=== PATIENT | female | born 1965 | race Caucasian/White ===

== ENCOUNTER 2018-05-02 13:31 | Emergency (ER) | payer SELFPAY ==
--- OUTSIDE RECORDS SUMMARY | 2018-05-02 13:34 | XMS REPORT ---
:1965 Author Organization eClinicalWorks Care Team Providers Name Role Phone Valerie Mcgill Provider Role Unavailable Allergies No Known Allergies Problems Problem Type Condition Code Onset Dates Condition Status Assessment Acute vaginitis N76.0 Active Problem Heavy menstrual period N92.0 Active Assessment Other specified bacterial agents as B96.89 Active the cause of diseases classified elsewhere Problem Other specified bacterial agents as B96.89 Active the cause of diseases classified elsewhere Problem Acute vaginitis N76.0 Active Problem Positive RPR test A53.0 Active Problem Iron deficiency anemia due to D50.0 Active chronic blood loss Problem 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
--- OUTSIDE RECORDS SUMMARY | 2018-05-02 13:34 | XMS REPORT ---
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
--- OUTSIDE RECORDS SUMMARY | 2018-05-02 13:34 | XMS REPORT ---
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
--- OUTSIDE RECORDS SUMMARY | 2018-05-02 13:34 | XMS REPORT ---
:1965 Author Organization eClinicalWorks Care Team Providers Name Role Phone Robert Torres Provider Role Unavailable Allergies No Known Allergies Problems Problem Type Condition Code Onset Dates Condition Status Problem Heavy menstrual period N92.0 Active Problem Other specified bacterial agents as [...]
--- OUTSIDE RECORDS SUMMARY | 2018-05-02 13:34 | XMS REPORT ---
:1965 Author Organization eClinicalWorks Care Team Providers Name Role Phone Valerie Mcgill Provider Role Unavailable Allergies, Adverse Reactions, Alerts Substance Reaction Event Type N.K.D.A. 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 Problem Female bladder prolapse N81.10 Active Problem test negative Z32.02 Active Medications Medication Code Code Instructions Start End Status Dosage System Date Date Metronidazole [place] 89080555968 500 MG Orally Active 1 tablet Twice a day Ferrous Sulfate ND 90203641369 325 (65 Fe) November Active 1 tablet MG Orally 20, Once a day 2015 [place] [address]-13 10 MG Active 1 at Sublingual bedtime as one time a needed day prn MedroxyPROGESTERone ND 62964619145 10 MG Orally Aug Active 1 tablet Acetate am and pm 2015 Levothroid NDC 0 50MCG by Active not defined mouth one time a day MetroGel-Vaginal ND 43384406459 0.75 % Active 1 Vaginal Once application a day at bedtime Results No Known Results Summary Purpose eClinicalWorks Submission
--- OUTSIDE RECORDS SUMMARY | 2018-05-02 13:34 | XMS REPORT ---
:1965 [facility] Providers Name Role Phone Valerie Mcgill Provider Role Unavailable Allergies, Adverse Reactions, Alerts Substance Reaction Event Type N.K.D.A. 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 Problem test negative Z32.02 Active Problem Iron deficiency anemia due to D50.0 Active chronic blood loss Problem Acute vaginitis N76.0 Active Problem Female bladder prolapse N81.10 Active Assessment Screening for colon cancer Z12.11 Active Assessment Encounter for gynecological Z01.419 Active examination without abnormal finding Assessment Breast cancer screening Z12.39 Active Assessment 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 Assessment Screening for cervical cancer Z12.4 Active Medications Medication Code Code Instructions Start End Status Dosage System Date Date Ferrous Sulfate [facility] 80769944513 325 (65 Fe) November Active 1 tablet MG Orally 20, Once a day 2015 Levothroid NDC 0 50MCG by Active not defined mouth one time a day MetroGel-Vaginal [facility] 44246086130 0.75 % Active 1 Vaginal Once application a day at bedtime Zolpidem Tartrate [facility] [address]-53 10 MG Active 1 at Sublingual bedtime as one time a needed day prn MedroxyPROGESTERone ND 21123667801 10 MG Orally Aug Active 1 tablet Acetate am and pm 2015 Metronidazole ND 19862366395 500 MG Orally Active 1 tablet Twice a day Results Name Result Date Reference Range Unit Abnormality Flag Pap IG, Ct-Ng, HPV-hr (433299) >30 +STD ----. . 20180117 ----HPV, high-risk Negative 20180117 Negative ----Chlamydia, Nuc. Acid Amp Negative 20180117 Negative ----Gonococcus, Nuc. Acid Amp Negative 20180117 Negative Summary Purpose eClinicalWorks Submission
[2018-05-02] MEDS ORDERED: ASPIRIN 81 MG CHEWABLE TABLET ONE (14:33)
[2018-05-02] MEDS ORDERED: NITROGLYCERIN 0.4 MG/TAB SL ONE (14:34)
[2018-05-02 14:39] LABS: Absolute Lymphocytes (CBC) 2.2 K/uL (0.7-4.9); Absolute Monocytes 0.5 K/uL (0.1-1.3); Absolute Neutrophil 6.6 K/uL (1.8-8.0); Basophils % 0.7 % (0-1.3); Eosinophils % 1.5 % (0-4.4); Hematocrit 42.3 % (36.0-45.0); Lymphocytes % 23.2 % (15.3-44.8); MCH 31.1 pg (27.0-35.0); MCV 91.5 fL (80-100); MPV 8.5 fL (7.6-11.3); Monocytes % 5.4 % (3.3-12.3); RBC Red Blood Cell Count 4.62 M/uL (3.86-4.86)
[2018-05-02 14:43] LABS: Protime INR 0.99
[2018-05-02 15:00] LABS: ALT/SGPT 33 U/L (12-78); AST/SGOT 25 U/L (15-37); Albumin 4.3 g/dL (3.4-5.0); Alkaline Phosphatase 71 U/L (45-117); BUN Blood Urea Nitrogen 11 mg/dL (7-18); Bicarbonate 27 mmol/L (21-32); Bilirubin Direct < 0.1 mg/dL (0-0.2); Bilirubin Total 0.4 mg/dL (0.2-1.0); Glucose Level 88 mg/dL (74-106); Magnesium 2.1 mg/dL (1.8-2.4); NT PRO-BNP 82 pg/mL (<125); Protein, Total 8.3 g/dL (6.4-8.2); Sodium Level 138 mmol/L (136-145); Troponin (Emerg Dept Use Only) < 0.02 ng/mL (0.0-0.045)
--- NOTE | 2018-05-02 15:01 | RAD REPORT ---
EXAM DESCRIPTION: Shwetat Single View05/02/2018 2:44 pm CLINICAL HISTORY: Chest pain COMPARISON: none FINDINGS: The lungs appear clear of acute infiltrate. The heart is probably normal size. Scoliosis involves the thoracolumbar spine. A Goff sukumar has been placed
[2018-05-02 16:04] LABS: Blood Morphology Comment NOT SEEN (NOT SEEN); Platelet Estimate ADEQ; Urine White Blood Cell Casts OK
--- NOTE | 2018-05-02 17:51 | ER ---
Nurse's Notes [facility] Name: Makayla Rivera Age: 52 yrs Sex: Female : 1965 Arrival Date: 05/02/2018 Time: 13:35 Bed 26 Private MD: Rubin Ramos H Diagnosis: Chest pain, unspecified Presentation: 05/02 13:36 Presenting complaint: Patient states: left sided chest pain with radiation to the right sv arm, dizziness since . Denies n/v. Transition of care: patient was not received from another setting of care. Onset of symptoms was April 27, 2018. Care prior to arrival: None. 13:36 Method Of Arrival: Wheelchair sv 13:36 Acuity: FADUMO 3 sv 13:45 Risk Assessment: Do you want to hurt yourself or someone else? Patient reports no kr2 desire to harm self or others. Initial Sepsis Screen: Does the patient meet any 2 criteria? No. Patient's initial sepsis screen is negative. Does the patient have a suspected source of infection? No. Patient's initial sepsis screen is negative. Triage Assessment: 13:37 General: Appears in no apparent distress. uncomfortable, obese, Behavior is calm, sv cooperative, appropriate for age. Pain: Complains of pain in anterior aspect of left upper chest and left breast Pain radiates to right arm Pain currently is 8 out of 10 on a pain scale. Pain began 1 day ago. Neuro: Level of Consciousness is awake, alert, obeys commands, Oriented to person, place, time, situation, Moves all extremities. Full function Gait is steady, Reports dizziness. Respiratory: Respiratory effort is even, unlabored, Respiratory pattern is regular, symmetrical. Historical: - Allergies: 13:37 No Known Allergies; sv - PMHx: 13:37 Thyroid problem; scoliosis; sv - PSHx: 13:37 None; sv - Immunization history:: Flu vaccine is not up to date. - Social history:: Smoking status: Patient/guardian denies using tobacco. - Ebola Screening: : No symptoms or risks identified at this time. Screenin:31 Abuse screen: Denies threats or abuse. Denies injuries from another. Nutritional aj screening: No deficits noted. Tuberculosis screening: No symptoms or risk factors identified. Fall Risk None identified. Assessment: 15:53 Reassessment: Patient appears in no apparent distress at this time. Patient and/or kr2 family updated on plan of care and expected duration. Pain level reassessed. Patient is alert, oriented x 3, equal unlabored respirations, skin warm/dry/pink. Patient states feeling better. Vital Signs: 13:37 BP 163 / 87; Pulse 62; Resp 18; Temp 97.4; Pulse Ox 100% ; Weight 83.91 kg; Height 5 sv ft. 1 in. (154.94 cm); Pain 8/10; 16:06 BP 147 / 77; Pulse 59; Resp 20; Pulse Ox 99% on R/A; aj 17:31 BP 139 / 79; Pulse 57; Resp 20; Pulse Ox 99% on R/A; aj 13:37 Body Mass Index 34.96 (83.91 kg, 154.94 cm) sv ED Course: 13:35 Patient arrived in ED. mr 13:35 Rubin Ramos DO is Private Physician. mr 13:37 Triage completed. sv 13:37 Arm band placed on Patient placed in an exam room, on a stretcher. sv 13:45 Jaja Narayan, RN is Primary Nurse. aj 13:49 Mahendra Medina PA is PHCP. jr8 13:49 Chava Martin MD is Attending Physician. jr8 14:01 EKG done, by chemical production technician. reviewed by Chava Martin MD. tc 14:45 XRAY Chest (1 view) In Process Unspecified. EDMS 15:40 No provider procedures requiring assistance completed. Inserted saline lock: 22 gauge aj in left antecubital area, using aseptic technique. Patient maintains SpO2 saturation greater than 95% on room air. 17:31 Patient has correct armband on for positive identification. digital traffic coordinator on. Pulse aj ox on. NIBP on. 18:14 IV discontinued, intact, bleeding controlled, No redness/swelling at site. Pressure kr2 dressing applied. Administered Medications: 14:30 Drug: Aspirin Chewable Tablet 324 mg Route: PO; kr2 16:06 Follow up: Response: No adverse reaction aj 14:33 Drug: Nitroglycerin 0.4 mg Route: Sublingual; aj 16:06 Follow up: Response: No adverse reaction aj Outcome: 17:50 Discharge ordered by . jr8 18:15 Discharged to home ambulatory, with family. kr2 18:15 Condition: good 18:15 Discharge instructions given to patient, Instructed on discharge instructions, follow up and referral plans. Demonstrated understanding of instructions, follow-up care. 18:16 Patient left the ED. kr2 Signatures: Dispatcher [employer] EDShruthi Liu, RN Jaja Hood RN RN aj Rivera, Mary mr Adam, JACQUELINE Mccray jr8 Mely Kauffman, sap data architect EKG [facility] Yasemin Ortiz RN RN kr2
--- NOTE | 2018-05-02 17:51 | EDPHYS ---
Physician Documentation [facility] Name: Makayla Rivera Age: 52 yrs Sex: Female : 1965 Arrival Date: 05/02/2018 Time: 13:35 Bed 26 Private MD: Rubin Ramos H ED Physician Chava Martin HPI: 05/02 15:08 This 52 yrs old Female presents to ER via Wheelchair with complaints of Chest jr8 Pain. 15:08 The patient or guardian reports chest pain that is located primarily in the substernal jr8 area. Onset: acutely, today. The pain radiates to both arms. Associated signs and symptoms: The patient has no apparent associated signs or symptoms. The chest pain is described as a pressure. Duration: The patient or guardian reports a single episode, that is still ongoing. Modifying factors: The symptoms are alleviated by nothing. the symptoms are aggravated by nothing. Severity of pain: At its worst the pain was moderate in the emergency department the pain is unchanged. The patient has not experienced similar symptoms in the past. The patient has not recently seen a physician. Historical: - Allergies: 13:37 No Known Allergies; sv - PMHx: 13:37 Thyroid problem; scoliosis; sv - PSHx: 13:37 None; sv - Immunization history:: Flu vaccine is not up to date. - Social history:: Smoking status: Patient/guardian denies using tobacco. - Ebola Screening: : No symptoms or risks identified at this time. ROS: 15:08 Eyes: Negative for injury, pain, redness, and discharge, ENT: Negative for injury, jr8 pain, and discharge, Neck: Negative for injury, pain, and swelling, Respiratory: Negative for shortness of breath, cough, wheezing, and pleuritic chest pain, Abdomen/GI: Negative for abdominal pain, nausea, vomiting, diarrhea, and constipation, Back: Negative for injury and pain, MS/Extremity: Negative for injury and deformity, Skin: Negative for injury, rash, and discoloration, Neuro: Negative for headache, weakness, numbness, tingling, and seizure. 15:08 Cardiovascular: Positive for chest pain, Negative for edema, orthopnea, palpitations, paroxysmal nocturnal dyspnea. Exam: 15:08 Eyes: Pupils equal round and reactive to light, extra-ocular motions intact. Lids and jr8 lashes normal. Conjunctiva and sclera are non-icteric and not injected. Cornea within normal limits. Periorbital areas with no swelling, redness, or edema. ENT: Nares patent. No nasal discharge, no septal abnormalities noted. Tympanic membranes are normal and external auditory canals are clear. Oropharynx with no redness, swelling, or masses, exudates, or evidence of obstruction, uvula midline. Mucous membranes moist. Neck: Trachea midline, no thyromegaly or masses palpated, and no cervical lymphadenopathy. Supple, full range of motion without nuchal rigidity, or vertebral point tenderness. No Meningismus. Chest/axilla: Normal chest wall appearance and motion. Nontender with no deformity. No lesions are appreciated. Cardiovascular: Regular rate and rhythm with a normal S1 and S2. No gallops, murmurs, or rubs. Normal PMI, no JVD. No pulse deficits. Respiratory: Lungs have equal breath sounds bilaterally, clear to auscultation and percussion. No rales, rhonchi or wheezes noted. No increased work of breathing, no retractions or nasal flaring. Abdomen/GI: Soft, non-tender, with normal bowel sounds. No distension or tympany. No guarding or rebound. No evidence of tenderness throughout. Back: No spinal tenderness. No costovertebral tenderness. Full range of motion. Skin: Warm, dry with normal turgor. Normal color with no rashes, no lesions, and no evidence of cellulitis. MS/ Extremity: Pulses equal, no cyanosis. Neurovascular intact. Full, normal range of motion. Neuro: Awake and alert, GCS 15, oriented to person, place, time, and situation. Cranial nerves II-XII grossly intact. Motor strength 5/5 in all extremities. Sensory grossly intact. Cerebellar exam normal. Normal gait. Vital Signs: 13:37 BP 163 / 87; Pulse 62; Resp 18; Temp 97.4; Pulse Ox 100% ; Weight 83.91 kg; Height 5 sv ft. 1 in. (154.94 cm); Pain 8/10; 16:06 BP 147 / 77; Pulse 59; Resp 20; Pulse Ox 99% on R/A; aj 17:31 BP 139 / 79; Pulse 57; Resp 20; Pulse Ox 99% on R/A; aj 13:37 Body Mass Index 34.96 (83.91 kg, 154.94 cm) sv MDM: 13:50 Patient medically screened. jr8 17:49 The patient was given aspirin in the Emergency Department. Data reviewed: vital signs, [facility] nurses notes, lab test result(s), EKG, radiologic studies, plain films. Data interpreted: Pulse oximetry: on room air is 99 %. Interpretation: normal. Counseling: I had a detailed discussion with the patient and/or guardian regarding: the historical points, exam findings, and any diagnostic results supporting the discharge/admit diagnosis, lab results, radiology results, the need for outpatient follow up, a director of photography, to return to the emergency department if symptoms worsen or persist or if there are any questions or concerns that arise at home. ED course: Patient had complete resolution of chest pain. X 2 troponin's both negative. Patient prefers to go home and f/u with PCP in 48 hours for scheduled appointment. Would come back if pain were to start again . 05/02 14:14 Order name: Basic Metabolic Panel; Complete Time: 15:01 [facility] 05/02 14:14 Order name: CBC with Diff; Complete Time: 16:18 [facility] 05/02 14:14 Order name: LFT's; Complete Time: 15:01 [facility] 05/02 14:14 Order name: Magnesium; Complete Time: 15:01 [facility] 05/02 14:14 Order name: NT PRO-BNP; Complete Time: 15:01 [facility] 05/02 14:14 Order name: PT-INR; Complete Time: 14:47 [facility] 05/02 13:41 Order name: EKG; Complete Time: 13:41 sv 05/02 13:41 Order name: EKG - Nurse/Tech; Complete Time: 14:43 sv 05/02 14:14 Order name: Troponin (emerg Dept Use Only); Complete Time: 15:01 [facility] 05/02 14:14 Order name: XRAY Chest (1 view); Complete Time: 15:07 [facility] 05/02 14:57 Order name: CBC Smear Scan; Complete Time: 16:18 [facility] 05/02 17:04 Order name: Troponin (emerg Dept Use Only); Complete Time: 17:48 [facility] 05/02 14:14 Order name: Cardiac monitoring; Complete Time: 14:31 [facility] 05/02 14:14 Order name: IV Saline Lock; Complete Time: 14:43 jr8 05/02 14:14 Order name: Labs collected and sent; Complete Time: 14:43 jr8 05/02 14:14 Order name: O2 Per Protocol; Complete Time: 14:31 jr8 05/02 14:14 Order name: O2 Sat Monitoring; Complete Time: 14:31 8 Administered Medications: 14:30 Drug: Aspirin Chewable Tablet 324 mg Route: PO; kr2 16:06 Follow up: Response: No adverse reaction aj 14:33 Drug: Nitroglycerin 0.4 mg Route: Sublingual; aj 16:06 Follow up: Response: No adverse reaction aj Disposition: 05/02/18 17:50 Discharged to Home. Impression: Chest pain, unspecified. - Condition is Stable. - Discharge Instructions: Nonspecific Chest Pain, Aspirin and Your Heart, Chest Pain Observation. - Medication Reconciliation Form, Thank You Letter, Antibiotic Education, Prescription Opioid Use form. - Follow up: Private Physician; When: 48 Hours; Reason: Recheck today's complaints, Continuance of care, Re-evaluation by your physician. - Problem is new. - Symptoms are resolved. Addendum: 05/04/2018 06:31 Co-signature as Attending Physician, Chava Martin MD I agree with the assessment and c doan plan of care. Signatures: Dispatcher [employer] Shruthi Gupta RN RN sv Myers, Amanda, RN RN aj Anderson, Corey, MD MD cha Roszak, Josh PA PA jr8 Yasemin Ortiz RN RN kr2 Corrections: (The following items were deleted from the chart) 05/02 18:16 17:50 05/02/2018 17:50 Discharged to Home. Impression: Chest pain, unspecified. kr2 Condition is Stable. Forms are Medication Reconciliation Form, Thank You Letter, Antibiotic Education, Prescription Opioid Use. Follow up: Private Physician; When: 48 Hours; Reason: Recheck today's complaints, Continuance of care, Re-evaluation by your physician. Problem is new. Symptoms are resolved. jr8
--- NOTE | 2018-05-02 22:40 | EKG ---
Test Date: 2018-05-02 Test Time: 13:48:33 Correctional Supply Supervisor: DT/A MEASUREMENT RESULTS: Intervals: Rate: 62 SC: 134 QRSD: 96 QT: 440 QTc: 446 [place]: P: 54 SC: 134 QRS: -5 T: 33 INTERPRETIVE STATEMENTS: Normal sinus rhythm Cannot rule out Anterior infarct, age undetermined Abnormal ECG No previous ECG available for comparison Electronically Signed On 05-02-18 22:39:53 [employer] ENGINEER by Jeovany Espinosa
== END 2018-05-02 18:16 | disposition home or self-care (01) ==
LOC: ER 13:31
DX: R07.9 Chest pain, unspecified (principal); R94.31 Abnormal electrocardiogram [ECG] [EKG]
CPT/HCPCS: 36415; 71045; 80048; 80076; 83735; 83880; 84484; 85025; 85610; 93005; 99285

== ENCOUNTER 2019-09-14 13:29 | Emergency (ER) | payer OTHER, SELFPAY ==
--- OUTSIDE RECORDS SUMMARY | 2019-09-14 13:31 | XMS REPORT ---
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
--- OUTSIDE RECORDS SUMMARY | 2019-09-14 13:31 | XMS REPORT ---
:1965 Author Organization eClinicalWorks Care Team Providers Name Role Phone Valerie Mcgill Provider Role Unavailable Allergies No Known Allergies Problems Problem Type Condition Code Onset Dates Condition Statu s Assessment Acute vaginitis N76.0 Active Problem Heavy menstrual period N92.0 Activ e Assessment Other specified bacterial agents as B96.89 Active the cause of diseases classified elsewhere Problem Other specified bacterial agents as B96.89 Active the cause of diseases classified elsewhere Problem Acute vaginitis N76.0 Active Problem Positive RPR test A53.0 Active Problem Iron deficiency anemia due to D50.0 Active chronic blood loss 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
--- OUTSIDE RECORDS SUMMARY | 2019-09-14 13:31 | XMS REPORT ---
:1965 Author Organization eClinicalWorks Care Team Providers Name Role Phone Robert Torres Provider Role Unavailable Allergies No Known Allergies Problems Problem Type Condition Code Onset Dates Condition Statu s Problem Heavy menstrual period N92.0 Activ e Problem Other specified bacterial agents as B96.89 [...]
--- OUTSIDE RECORDS SUMMARY | 2019-09-14 13:31 | XMS REPORT ---
:1965 Author Organization eClinicalWorks Care Team Providers Name Role Phone Valerie Mcgill Provider Role Unavailable Allergies, Adverse Reactions, Alerts Substance Reaction Event Type N.K.D.A. Info Not Available Non Drug Allergy Problems Problem Type Condition Code Onset Dates Condition Statu s Assessment Acute vaginitis N76.0 Active Problem Heavy menstrual period N92.0 Activ e Assessment Positive RPR test A53.0 Active Assessment [...] End Status Dosage System Date Date Metronidazole NDC 07719471883 500 MG Orally Active 1 tablet Twice a day Ferrous Sulfate NDC 87335969304 325 (65 Fe) November Active 1 tablet MG Orally 20, Once a day 2015 Zolpidem Tartrate NDC [address]-43 10 MG Active 1 at Sublingual bedtime as one time a needed day prn MedroxyPROGESTERone NDC 63284215865 10 MG Orally Dec Act rabia 1 tablet Acetate am and pm 2015 Levothroid NDC 0 50MCG by Active not defined mouth one time a day MetroGel-Vaginal NDC 65120525459 0.75 % Active 1 Vaginal Once application a day at bedtime Results No Known Results Summary Purpose eClinicalWorks Submission
--- OUTSIDE RECORDS SUMMARY | 2019-09-14 13:32 | XMS REPORT ---
:1965 [facility] Care Team Providers Name Role Phone Valerie Mcgill Provider Role Unavailable Allergies, Adverse Reactions, Alerts Substance Reaction Event Type N.K.D.A. 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 Problem test negative Z32.02 Acti ve Problem Iron deficiency anemia due to D50.0 Active chronic blood loss Problem Acute vaginitis N76.0 Active Problem Female bladder prolapse N81.10 Acti ve Assessment Screening for colon cancer Z12.11 A ctive Assessment Encounter for gynecological Z01.419 Active examination without abnormal finding Assessment Breast cancer screening Z12.39 Acti ve Assessment 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 Assessment Screening for cervical cancer Z12.4 Active Medications Medication Code Code Instructions Start End Status Dosage System Date Date Ferrous Sulfate ND 51627483835 325 (65 Fe) November Active 1 tablet MG Orally 20, Once a day 2015 Levothroid NDC 0 50MCG by Active not defined mouth one time a day MetroGel-Vaginal ND 14242993365 0.75 % Active 1 Vaginal Once application a day [place] [address]-41 10 MG Active 1 at Sublingual bedtime as one time a needed day prn MedroxyPROGESTERone ND 30565324724 10 MG Orally Dec Act rabia 1 tablet Acetate am and pm 2015 Metronidazole ND 49467341189 500 MG Orally Active 1 tablet Twice a day Results Name Result Date Reference Range Unit Abnormali ty Flag Pap IG, Ct-Ng, HPV-hr ([id number]) >30 +STD ----. . [id number] ----HPV, high-risk Negative 20180117 Negative ----Chlamydia, Nuc. Acid Amp Negative 20180117 Negative ----Gonococcus, Nuc. Acid Amp Negative 20180117 Negative Summary Purpose eClinicalWorks Submission
--- OUTSIDE RECORDS SUMMARY | 2019-09-14 13:32 | XMS REPORT ---
:1965 Author Organization [facility] t Address [address] [place] [address] Care Team Providers Name Role Phone Unavailable Unavailable Unavailable Problems Condition Condition Condition Status Onset Resolution Last Treatin g Comments Name Details Category Date Date Treatment Clinician Date Heavy Heavy Problem Active menstrual menstrual period period Other Other Problem Active specified specified bacterial bacterial agents as agents as the cause the cause of diseases of diseases classified classified elsewhere elsewhere Acute Acute Problem Active vaginitis vaginitis Latent Latent Problem Active syphilis syphilis Iron Iron Problem Active deficiency deficiency anemia due anemia due to chronic to chronic blood loss blood loss Uterus Uterus Problem Active fibroma fibroma Female Female Problem Active bladder bladder prolapse prolapse Problem Active test test negative negative Acquired Acquired Problem Active syphilis syphilis Allergies, Adverse Reactions, Alerts This patient has no known allergies or adverse reactions. Medications Ordered Filled Start Stop Current Ordering Indication Dosage Frequency Signature Comments Components Medication Medication Date Date Medication? Clinician (SIG) Name Name MedroxyPROG MedroxyPROG 2016-0 Yes Paresa 1 tabl et ESTERone ESTERone 8-17 Mcgill Acetate Acetate 00:00: 00 Ferrous Ferrous 2015-0 Yes Paresa 1 tablet Sulfate Sulfate 7-20 Mcgill 00:00: 00 Metronidazo Metronidazo Yes Paresa 1 table t le le Mcgill Levothroid Levothroid Yes Paresa not Mcgill defined MetroGel-Va MetroGel-Va Yes Paresa 1 ginal ginal Mcgill applicatio n at bedtime Zolpidem Zolpidem Yes Paresa 1 at Tartrate Tartrate Mcgill bedtime as needed Encounters Start End Encounter Admission Attending Care Care Encounter Date/Time Date/Time Type Type Clinicians Facility Department ID 2018-02-13 2018-02-13 Outpatient [facility](Marilyn Hope( [id number] 16:50:00 16:50:00 [facility] ) 2018-01-17 2018-01-17 Outpatient [facility](Marilyn Hope( [id number] 13:45:00 13:45:00 n [facility] ) 2017-11-02 2017-11-02 Outpatient [facility](Marilyn Hope( [id number] 15:10:00 15:10:00 n [facility] ) 2017-10-28 2017-10-28 Outpatient [facility](Marilyn Hope( [id number] 15:30:00 15:30:00 n [facility] ) 2017-10-27 2017-10-27 Outpatient [facility](Marilyn Hope( [id number] 09:42:00 09:42:00 n [facility] ) 2017-10-26 2017-10-26 Outpatient [facility](Marilyn Hope( [id number] 10:30:00 10:30:00 n [facility] )
--- OUTSIDE RECORDS SUMMARY | 2019-09-14 13:32 | XMS REPORT | Summary of Care ---
:1965 Author Organization [facility] Address [address] [place] [id number] Care Team Providers Name Role Phone Pcp, Does Not Have A Primary Care Provider Reason for Visit Reason Comments Diarrhea x 07/13/2019 Vomiting Cough Headache Encounter Details Date Type Department Care Team Description 07/16/2019 Urgent Care [facility] Unknown, Attending I tasha Benavidez (Primary Dx); Urgent Care Tracy Torres, [employer] [address] [place] [address] Fever in adult; [address], Cough; [address] Diarrhea, unspecified type; [place], [place] Nausea [id number] Allergies No Known Allergiesdocumented as of this encounter (statuses as of 07/16/2019) Medications Medication Sig Dispensed Refills Start Date End Date Status levothyroxine 75 mcg Take 75 mcg by 0 04/19/2019 Active tablet mouth. cyclobenzaprine 10 mg TAKE 1 TABLET 0 06/02/2019 Active tablet BY MOUTH EVERY 8 HOURS NEEDED FOR SPASMS lisinopril 10 mg Take 10 mg by 0 Active tablet mouth daily. oseltamivir 75 mg Take 1 capsule 10 capsule 0 07/16/201907/21 Active capsuleIndications: by mouth 2 Influenza A (two) times daily for 5 days. benzonatate 200 mg Take 1 capsule 25 capsule 0 07/16/2019 Active capsuleIndications: by mouth 3 Influenza A, Cough (three) times daily as needed for Cough. ondansetron 4 mg Take 1 tablet 20 tablet 0 07/16/2019 Active tabletIndications: by mouth every Nausea 8 (eight) hours as needed for Nausea and Vomiting (N/V). documented as of this encounter (statuses as of 07/16/2019) Active Problems No known active problemsdocumented as of this encounter (statuses as of 07/16/2019) Social History Tobacco Use Types Packs/Day Years Used Date Never Smoker Smokeless Tobacco: Never Used Sex Assigned at Date Recorded Not on file Job Start Date Occupation Industry Not on file Not on file Not on file Travel History Travel Start Travel End No recent travel history available. documented as of this encounter Last Filed Vital Signs Vital Sign Reading Time Taken Comments Blood Pressure 138/80 07/16/2019 6:07 PM GRAVITY FLOW IRRIGATOR Pulse 95 07/16/2019 6:07 PM GRAVITY FLOW IRRIGATOR Temperature 39.3 C (102.8 F) 07/16/2019 6:07 PM GRAVITY FLOW IRRIGATOR Respiratory Rate 18 07/16/2019 6:07 PM GRAVITY FLOW IRRIGATOR Oxygen Saturation 98% 07/16/2019 6:07 PM GRAVITY FLOW IRRIGATOR Inhaled Oxygen Concentration - - Weight 86.2 kg (190 lb) 07/16/2019 6:07 PM GRAVITY FLOW IRRIGATOR Height 154.9 cm (5' 1") 07/16/2019 6:07 PM GRAVITY FLOW IRRIGATOR Body Mass Index 35.9 07/16/2019 6:07 PM GRAVITY FLOW IRRIGATOR documented in this encounter Patient Instructions Patient InstructionsTracy Torres FNP - 07/16/2019 6:00 PM GRAVITY FLOW IRRIGATOR Influenza (Adult) - the flu is caused by a virus and spreads through the air in droplets when someone who has the flu coughs, sneezes, laughs, or talks. - the flu usually gets better after 7 days or so. - home care: Rest Increase clear fluid intake to maintain hydration. Vitamin C Cover nose and mouth when coughing and sneezing. HAND HYGIENE (with alcohol gels or hand washing) Advised to take Tylenol or Ibuprofen as per label recommendation for fever. May take Delsym or Robitussin as needed for cough. Irrigate your nose with normal saline moisture spray 2 or 3 times a day. You may use a spray, squeeze bottle, or nasal pot. - Advised to follow up with PCP, return to Urgent Care, or go to the nearest Emergency Department sooner for any new, worsening, persistent, or concerning symptoms. Influenza is also called the flu. It's a viral illness that affects the air passages of your lungs. It's different from the common cold. The flu can easily be passed from one to person to another. It may be spread through the air by coughing and sneezing. Or it can be spread by touching the sick person and then touching your own eyes, nose, or mouth. The flu starts 1 to 3 days after you are exposed to the flu virus. It may lastfor 1 to 2 weeks butsometimes people feel tired or fatigued for many weeks afterward. You usually dont need to take antibiotics unless you are at high risk for or have a complication . This might be an ear or sinus infection or pneumonia. Symptoms of the flu may be mild or severe. They can include extreme tiredness (wanting to stay in bed all day), chills, fevers, muscle aches, soreness with eye movement, headache, and a dry, hacking cough. Antiviral medicine for the flu is available by prescription. If you start taking it within 48 hours,it may help reduce how long your symptoms last and how severe they are. Your provider may do a test to find out if you have influenza and which strain you have. Home care Follow these guidelines when caring for yourself at home: Stay away from cigarette smoke, whether yours or other peoples. Acetaminophen or ibuprofen will help ease your fever, muscle aches, and headache. Dont give aspirin to anyone younger than 18 who has the flu. This can cause a serious condition called Catherine syndrome. Nausea, loose stools, and loss of appetite are common with the flu. Eat light meals. Drink 6 to 8glasses of liquids every day. Good choices are water, sport drinks, soft drinks without caffeine, juices, tea, and soup. Extra fluids will also help loosen secretions in your nose and lungs. Yvxe-wjp-oiyxizb cold medicines will not make the flu go away faster. But the medicines may help with coughing, sore throat, and congestion in your nose and sinuses. Dont use a decongestant if you have high blood pressure. Stay home until your fever has been gone for at least 24 hours without using medicine to reduce fever. Follow-up care Follow up with your healthcare provider, or as advised, if you are not getting better over the next week. If you are age 65 or older, talk with your provider about getting a pneumococcal vaccine every 5 years. You should also get this vaccine if you have chronic asthma or COPD. All adults should get a flu vaccine every fall. Ask your provider about this. When to seek medical advice Call your healthcare provider right away if you have the flu and any of these occur: Cough with lots of colored mucus (sputum) or blood in your mucus Chest pain, shortness of breath, wheezing, or trouble breathing Severe headache, or face, neck, or ear pain New rashwith fever Fever of 100.4F (38C)or higher, or asdirected by your healthcare provider Confusion, behavior change, or seizure Severe weakness or dizziness You get a newfever or cough after getting better for a few days Also call your provider if you have flu symptoms and have a weakened immune system or are taking medicines that can weaken your immune system. These include steroids and certain anti-inflammatory medicines. [employer] last reviewed this educational content on 02/27/201919996291-6757 [employer]. [address] [place] [address]. All rights reserved. This information is not intended as a substitute for professional medical care. Always follow your healthcare professional's instructions. ITY FLOW IRRIGATOR documented in this encounter Progress Notes Tracy Torres FNP - 07/16/2019 6:00 PM CST Cc: Chief Complaint Patient presents with Diarrhea x 07/13/2019 Vomiting Cough Headache Makayla Rivera is a 54 year old female that presents to the urgent care for diarrhea, vomiting, cough and headache. Symptoms started on Tuesday night. Her started with similar symptoms early in the day Tuesday as well. INFLUENZA Presenting symptoms: cough, diarrhea, fever, headache, myalgias, rhinorrhea, sore throat and vomiting Severity: Moderate Onset quality: Sudden Duration: 3 days Progression: Unchanged Chronicity: New Relieved by: Nothing Worsened by: Nothing Ineffective treatments: sudafed, lemon water and cough drops. Associated symptoms: no ear pain Risk factors: sick contacts () Allergies Makayla has No Known Allergies. Medications Outpatient Medications Prior to Visit Medication Sig Dispense Refill levothyroxine 75 mcg tablet Take 75 mcg by mouth. lisinopril 10 mg tablet Take 10 mg by mouth daily. cyclobenzaprine 10 mg tablet TAKE 1 TABLET BY MOUTH EVERY 8 HOURS NEEDED FOR SPASMS No facility-administered medications prior to visit. Histories Past Medical History: Diagnosis Date Hypertension Hypothyroidism Scoliosis Past Surgical History: Procedure Laterality Date SPINE SURGERY Social History Socioeconomic History Marital status: Spouse name: Not on file Number of children: Not on file Years of education: Not on file Highest education level: Not on file Occupational History Not on file Social Needs Financial resource strain: Not on file Food insecurity: Worry: Not on file Inability: Not on file Transportation needs: Medical: Not on file Non-medical: Not on file Tobacco Use Smoking status: Never Smoker Smokeless tobacco: Never Used Substance and Sexual Activity Alcohol use: Not on file Drug use: Not on file Sexual activity: Not on file Lifestyle Physical activity: Days per week: Not on file Minutes per session: Not on file Stress: Not on file Relationships Social connections: Talks on phone: Not on file Gets together: Not on file Attends congregation service: Not on file Active member of club or organization: Not on file Attends meetings of clubs or organizations: Not on file Relationship status: Not on file Intimate partner violence: Fear of current or ex partner: Not on file Emotionally abused: Not on file Physically abused: Not on file Forced sexual activity: Not on file Other Topics Concern Not on file Social History Narrative Not on file No family history on file. Review of Systems Constitutional: Positive for fever. HENT: Positive for rhinorrhea and sore throat. Negative for ear discharge and ear pain. Respiratory: Positive for cough. Gastrointestinal: Positive for diarrhea and vomiting. Musculoskeletal: Positive for myalgias. Negative for arthralgias. Skin: Negative for rash. Neurological: Positive for headaches. Psychiatric/Behavioral: Negative for agitation and confusion. Vital Signs BP 138/80 | Pulse 95 | Temp 39.3 C (102.8 F) (Oral) | Resp 18 | Ht 5' 1" (1.549 m) | Wt 190lb (86.2 kg) | SpO2 98% | BMI 35.90 kg/m Physical Exam Constitutional: She is oriented to person, place, and time. She appears well- developed and well-nourished. No distress. HENT: Head: Normocephalic and atraumatic. Right Ear: Tympanic membrane and ear canal normal. Left Ear: Tympanic membrane and ear canal normal. Nose: Nose normal. Mouth/Throat: Uvula is midline, oropharynx is clear and moist and mucous membranes are normal. Eyes: Conjunctivae are normal. Cardiovascular: Normal rate, regular rhythm, normal heart sounds and intact distal pulses. Pulmonary/Chest: Effort normal and breath sounds normal. She has no wheezes. She has no rales. Lymphadenopathy: Head (right side): No submandibular and no tonsillar adenopathy present. Head (left side): No submandibular and no tonsillar adenopathy present. She has no cervical adenopathy. Neurological: She is alert and oriented to person, place, and time. Gait normal. Skin: Skin is warm and dry. No rash noted. Psychiatric: She has a normal mood and affect. Her behavior is normal. Thought content normal. Nursing note and vitals reviewed. Recent Labs 07/16/19 1814 POCTFLUA pos POCTFLUB n/a Assessment/Plan 1. Influenza A - oseltamivir 75 mg capsule; Take 1 capsule by mouth 2 (two) times daily for 5 days. Dispense: 10 capsule; Refill: 0 - benzonatate 200 mg capsule; Take 1 capsule by mouth 3 (three) times daily as needed for Cough. Dispense: 25 capsule; Refill: 0 - educated patient that the flu is caused by a virus and spreads through the air in droplets when someone who has the flu coughs, sneezes, laughs, or talks. - the flu usually gets better after 7 days or so. - home care: Rest Increase clear fluid intake to maintain hydration. Vitamin C Cover nose and mouth when coughing and sneezing. HAND HYGIENE (with alcohol gels or hand washing) Advised to take Tylenol or Ibuprofen as per label recommendation for fever. May take Delsym or Robitussin as needed for cough. Irrigate your nose with normal saline moisture spray 2 or 3 times a day. You may use a spray, squeeze bottle, or nasal pot. - Advised to follow up with PCP, return to Urgent Care, or go to the nearest Emergency Department sooner for any new, worsening, persistent, or concerning symptoms. - work excuse provided. 2. Fever in adult - POCT FLU A AND B (MOLECULAR) 3. Cough - POCT FLU A AND B (MOLECULAR) - benzonatate 200 mg capsule; Take 1 capsule by mouth 3 (three) times daily as needed for Cough. Dispense: 25 capsule; Refill: 0 4. Diarrhea, unspecified type - POCT FLU A AND B (MOLECULAR) 5. Nausea - ondansetron 4 mg tablet; Take 1 tablet by mouth every 8 (eight) hours as needed for Nausea and Vomiting (N/V). Dispense: 20 tablet; Refill: 0 Plan of care, desired health behaviors, goals, and medication discussed with patient. Education resources provided and reviewed with AVS. Patient/guardian/family verbalized understanding & agrees to plan of care. This visit did not involve counseling and coordination that comprised more than 50% of the visit time. Barriers to care: none. Ability to manage care: well. If applicable, the [facility] database was accessed to review any controlled substance prescription claims data. The [employer] prescription claims data in [employer] was reviewed to assess patient compliance with the medication treatment plan. Tracy Torres APRN, FNP-C 07/16/2019 6:26 PM ITY FLOW IRRIGATOR Chuyita Saha RN - 07/16/2019 6:00 PM CST Makayla Rivera is a 54 year old female Chief Complaint Patient presents with Diarrhea x 07/13/2019 Vomiting Cough Headache Vitals: 07/16/19 1807 BP: 138/80 Pulse: 95 Resp: 18 Temp: 39.3 C (102.8 F) TempSrc: Oral SpO2: 98% Weight: 190 lb (86.2 kg) Height: 5' 1" (1.549 m) [address] [facility] [address] [place]; EZRA JOVEL Patient AAOx4 and in no acute distress. All Vitals taken, allergies and all medications reviewed, fall risk assessed. Pain level 0. documented in this encounter Plan of Treatment Health Maintenance Due Date Last Done Comments DTaP,Tdap,and Td Vaccines (1 1978 - Tdap) Breast Cancer Screening 08/25/2012 08/26/2011 (MAMMOGRAM) PAP SMEAR 08/09/2014 08/10/2011, 01/15/2005 COLONOSCOPY 2017 Zoster Recombinant Vaccine 2017 (SHINGRIX) (1 of 2) INFLUENZA VACCINE (#1) 2019 PNEUMOCOCCAL 0-64 YEARS Aged Out No longe r eligible based COMBINED SERIES on patient's age to complete this to [facility] documented as of this encounter Procedures Procedure Name Priority Date/Time Associated Diagnosis Comme nts POCT FLU A AND B Routine 07/16/2019 6:14 PM Fever in ad ult Results for this (MOLECULAR) GRAVITY FLOW IRRIGATOR Cough procedure are in Diarrhea, the results unspecified type section. documented in this encounter Results POCT FLU A AND B (MOLECULAR) (07/16/2019 6:14 PM GRAVITY FLOW IRRIGATOR) Pathologist Sig nature POCT INFLUENZA A pos Negative - Negative POCT INFLUENZA B n/a Negative - Negative Specimen Swab Narrative Performed At accurate development and interpretation of all interna l controls documented in this encounter Visit Diagnoses Diagnosis Influenza A - Primary Influenza with other respiratory manifes tations Fever in adult Cough Diarrhea, unspecified type Nausea Nausea alone documented in this encounter
--- OUTSIDE RECORDS SUMMARY | 2019-09-14 13:32 | XMS REPORT | Summary of Care ---
:[address] [facility] - Health Address [address] [place] [address] Care Team Providers Name Role Phone Pcp, Does Not Have A Primary Care Provider Encounter Details Date Type Department Care Team Description 07/16/[address] [facility] Doctor Unassigned, No [address] [facility] [place] [address] [place] [id number] Allergies No Known Allergiesdocumented as of this encounter (statuses as of 07/16/2019) Medications Medication Sig Dispensed Refills Start Date End Date Status levothyroxine 75 mcg Take 75 mcg by 0 04/19/2019 Active tablet mouth. cyclobenzaprine 10 mg TAKE 1 TABLET 0 06/02/2019 Active tablet BY MOUTH EVERY 8 HOURS NEEDED FOR SPASMS documented as of this encounter (statuses as [...] of this encounter Last Filed Vital Signs Not on filedocumented in this encounter Plan of Treatment Health [...] on patient's age to complete this to pic documented as of this encounter Procedures Procedure Name Priority Date/Time Associated Diagnosis Comme nts ASSIGNMENT OF BENEFITS Routine 07/16/2019 6:03 PM ANIMAL CARE GIVER documented in this encounter Results Not on filedocumented in this encounter Insurance Payer Benefit Plan Subscriber ID Effective Dates Phone Address Type / Group [facility] [id number] 2017-Brian [phone] [address] P[place]/POS [place] - OUT OF t 7 [id number] [place] [address] documented as of this encounter
--- OUTSIDE RECORDS SUMMARY | 2019-09-14 13:32 | XMS REPORT ---
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
[2019-09-14 14:33] LABS: Absolute Lymphocytes (CBC) 2.3 K/uL (0.7-4.9); Basophils % 0.6 % (0-1.3); Hematocrit 43.8 % (36.0-45.0); MPV 8.1 fL (7.6-11.3); RBC Red Blood Cell Count 4.98 M/uL (3.86-4.86)
[2019-09-14 14:52] LABS: BUN Blood Urea Nitrogen 12 mg/dL (7-18); Bicarbonate 26 mmol/L (21-32); Glucose Level 101 mg/dL (74-106); NT PRO-BNP 10 pg/mL (<125); Sodium Level 139 mmol/L (136-145); Troponin (Emerg Dept Use Only) < 0.02 ng/mL (0.0-0.045)
--- NOTE | 2019-09-14 15:02 | RAD REPORT ---
EXAM DESCRIPTION: Benjy Single View09/14/2019 2:38 pm CLINICAL HISTORY: Chest pain COMPARISON: 2017 FINDINGS: The lungs appear clear of acute infiltrate. The heart is normal size IMPRESSION: No acute abnormalities displayed
--- NOTE | 2019-09-14 17:04 | EDPHYS ---
Physician Documentation [facility] Name: Makayla Rivera Age: 54 yrs Sex: Female : 1965 Arrival Date: 09/14/2019 Time: 13:30 Bed 6 Private MD: ED Physician Dean Pete HPI: 09/13 14:12 This 54 yrs old Female presents to ER via Ambulatory with complaints of Chest kdr Pain, Palpitations. 14:12 The patient or guardian reports chest pain that is located primarily in the substernal kdr area, anterior chest wall. Onset: this morning. The pain does not radiate. Associated signs and symptoms: Pertinent positives: lightheadedness, Pertinent negatives: diaphoresis, headache, nausea, near syncope, recent travel, shortness of breath, syncope. The chest pain is described as dull. Duration: The patient or guardian reports a single episode, that is now resolved. Severity of pain: At its worst the pain was mild in the emergency department the pain has improved mildly. The patient has experienced similar episodes in the past, a few times. The patient has not recently seen a physician. The patient has been feeling well except for the palpitations. . 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 - Social history:: Smoking status: Patient denies any tobacco usage or history of. ROS: 14:12 Constitutional: Negative for fever, chills, and weight loss, Eyes: Negative for injury, kdr pain, redness, and discharge, ENT: Negative for injury, pain, and discharge, Neck: Negative for injury, pain, and swelling, Respiratory: Negative for shortness of breath, cough, wheezing, and pleuritic chest pain, Abdomen/GI: Negative for abdominal pain, nausea, vomiting, diarrhea, and constipation, Back: Negative for injury and pain, MS/Extremity: Negative for injury and deformity, Skin: Negative for injury, rash, and discoloration, Neuro: Negative for headache, weakness, numbness, tingling, and seizure activity. Psych: Negative for depression, anxiety, suicide ideation, homicidal ideation, and hallucinations, Allergy/Immunology: Negative for hives, rash, and allergies, Endocrine: Negative for neck swelling, polydipsia, polyuria, polyphagia, and marked weight changes, Hematologic/Lymphatic: Negative for swollen nodes, abnormal bleeding, and unusual bruising. 14:12 Cardiovascular: Positive for chest pain, palpitations. Exam: 14:12 Constitutional: This is a well developed, well nourished patient who is awake, alert, kdr and in no acute distress. Head/Face: Normocephalic, atraumatic. Eyes: Pupils equal round and reactive to light, extra-ocular motions intact. Lids and lashes normal. Conjunctiva and sclera are non-icteric and not injected. Cornea within normal limits. Periorbital areas with no swelling, redness, or edema. Neck: Trachea midline, no thyromegaly or masses palpated, and no cervical lymphadenopathy. Supple, full range of motion without nuchal rigidity, or vertebral point tenderness. No Meningismus. Chest/axilla: Normal chest wall appearance and motion. Nontender with no deformity. No lesions are appreciated. Respiratory: Lungs have equal breath sounds bilaterally, clear to auscultation and percussion. No rales, rhonchi or wheezes noted. No increased work of breathing, no retractions or nasal flaring. Abdomen/GI: Soft, non-tender, with normal bowel sounds. No distension or tympany. No guarding or rebound. No evidence of tenderness throughout. Back: No spinal tenderness. No costovertebral tenderness. Full range of motion. Skin: Warm, dry with normal turgor. Normal color with no rashes, no lesions, and no evidence of cellulitis. MS/ Extremity: Pulses equal, no cyanosis. Neurovascular intact. Full, normal range of motion. Neuro: Awake and alert, GCS 15, oriented to person, place, time, and situation. Cranial nerves II-XII grossly intact. Motor strength 5/5 in all extremities. Sensory grossly intact. Cerebellar exam normal. Normal gait. Psych: Awake, alert, with orientation to person, place and time. Behavior, mood, and affect are within normal limits. 14:12 Cardiovascular: Regular rate and rhythm with a normal S1 and S2. No gallops, murmurs, or rubs. Normal PMI, no JVD. No pulse deficits. Vital Signs: 13:33 BP 131 / 85; Pulse 92; Resp 17 S; Temp 98.7(O); Pulse Ox 97% on R/A; Weight 81.65 kg ca1 (R); Height 5 ft. 1 in. (154.94 cm) (R); Pain 8/10; 14:50 BP 127 / 85; Pulse 84; Resp 16; Pulse Ox 97% ; bp 16:09 BP 128 / 68; Pulse 82; Resp 16; Pulse Ox 97% ; bp 17:10 BP 136 / 66; Pulse 71; Resp 17; Temp 98.5; Pulse Ox 100% ; bp 13:33 Body Mass Index 34.01 (81.65 kg, 154.94 cm) ca1 MDM: 14:12 Data reviewed: vital signs, nurses notes, lab test result(s), EKG, radiologic studies. kdr 17:03 Patient medically screened. [facility] 09/13 14:07 Order name: Basic Metabolic Panel; Complete Time: 15:50 [facility] 09/13 14:07 Order name: CBC with Diff; Complete Time: 15:50 [facility] 09/13 14:07 Order name: Magnesium; Complete Time: 15:50 [facility] 09/13 14:07 Order name: NT PRO-BNP; Complete Time: 15:50 [facility] 09/13 14:07 Order name: Troponin (emerg Dept Use Only); Complete Time: 15:50 [facility] 09/13 15:51 Order name: Troponin (emerg Dept Use Only); Complete Time: 17:02 [facility] 09/13 14:07 Order name: XRAY Chest (1 view); Complete Time: 15:50 [facility] 09/13 14:07 Order name: EKG; Complete Time: 14:08 [facility] 09/13 14:07 Order name: Cardiac monitoring; Complete Time: 14:34 [facility] 09/13 14:07 Order name: EKG - Nurse/Tech; Complete Time: 14:23 [facility] 09/13 14:07 Order name: IV Saline Lock; Complete Time: 14:23 [facility] 09/13 14:07 Order name: Labs collected and sent; Complete Time: 14:23 [facility] 09/13 14:07 Order name: O2 Per Protocol; Complete Time: 14:34 [facility] 09/13 14:07 Order name: O2 Sat Monitoring; Complete Time: 14:34 kdr Administered Medications: No medications were administered Disposition: 09/14/19 17:03 Discharged to Home. Impression: Other chest pain. - Condition is Stable. - Discharge Instructions: Nonspecific Chest Pain, Palpitations, [id number]. - Medication Reconciliation Form, Thank You Letter, Work release form form. - Follow up: Private Physician; When: 2 - 3 days; Reason: If symptoms return, Further diagnostic work-up, Recheck today's complaints, Continuance of care, Re-evaluation by your physician. - Problem is new. - Symptoms have improved. Signatures: Dispatcher [employer] EDMS Dean Pete MD MD kdr Peltier, Brian, RN RN Tala Gutierrez RN RN ca1 Corrections: (The following items were deleted from the chart) 17:19 17:03 09/14/2019 17:03 Discharged to Home. Impression: Other chest pain. Condition is bp Stable. Forms are Medication Reconciliation Form, Thank You Letter, Antibiotic Education, Prescription Opioid Use. Follow up: Private Physician; When: 2 - 3 days; Reason: If symptoms return, Further diagnostic work-up, Recheck today's complaints, Continuance of care, Re-evaluation by your physician. Problem is new. Symptoms have improved. kdr
--- NOTE | 2019-09-14 17:04 | ER ---
Nurse's Notes [facility] Name: Makayla Rivera Age: 54 yrs Sex: Female : 1965 Arrival Date: 09/14/2019 Time: 13:30 Bed 6 Private MD: Diagnosis: Other chest pain Presentation: 09/13 13:33 Chief complaint: Patient states: Chest pain since this morning. Reports palpitations ca1 and dizziness with chest pain. Denies cough, SOB and fever. Coronavirus screen: Proceed with normal triage. Patient denies a cough. Patient denies shortness of breath or difficulty breathing. Patient denies measured and/or subjective temperature greater than 100.4F prior to today's visit. Patient denies travel on a cruise ship or to a country the [facility] currently lists as an affected area. Patient denies contact with known and/or suspected case of COVID-19. Ebola Screen: Patient negative for fever greater than or equal to 101.5 degrees Fahrenheit, and additional compatible Ebola Virus Disease symptoms Patient denies exposure to infectious person. Patient denies travel to an Ebola-affected area in the 21 days before illness onset. No symptoms or risks identified at this time. Initial Sepsis Screen: Does the patient meet any 2 criteria? No. Patient's initial sepsis screen is negative. Does the patient have a suspected source of infection? No. Patient's initial sepsis screen is negative. Risk Assessment: Do you want to hurt yourself or someone else? Patient reports no desire to harm self or others. Onset of symptoms was September 14, 2019. 13:33 Method Of Arrival: Ambulatory ca1 13:33 Acuity: FADUMO 3 ca1 Triage Assessment: 14:12 General: Appears in no apparent distress. comfortable, Behavior is cooperative, bp appropriate for age, anxious. Pain: Complains of pain in chest. EENT: No deficits noted. Neuro: No deficits noted. Cardiovascular: Rhythm is sinus rhythm. Respiratory: No deficits noted. GI: No signs and/or symptoms were reported involving the gastrointestinal system. : No signs and/or symptoms were reported regarding the genitourinary system. Derm: No deficits noted. Musculoskeletal: No deficits noted. 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 - Social history:: Smoking status: Patient denies any tobacco usage or history of. Screenin:13 Abuse screen: Denies threats or abuse. Denies injuries from another. Nutritional bp screening: No deficits noted. Tuberculosis screening: No symptoms or risk factors identified. Fall Risk None identified. Assessment: 14:13 General: SEE TRIAGE NOTE. bp 14:51 Reassessment: ALL CURRENT ORDERS COMPLETED, DISPO PENDING. bp 16:10 Reassessment: SECOND TROPONIN SENT. INITIAL RESULTS UNREMARKALE. bp 17:18 Reassessment: PT D/C HOME AMBULATORY, DX WITH NONCARDIAC CHEST PAIN. bp Vital Signs: 13:33 BP 131 / 85; Pulse 92; Resp 17 S; Temp 98.7(O); Pulse Ox 97% on R/A; Weight 81.65 kg ca1 (R); Height 5 ft. 1 in. (154.94 cm) (R); Pain 8/10; 14:50 BP 127 / 85; Pulse 84; Resp 16; Pulse Ox 97% ; bp 16:09 BP 128 / 68; Pulse 82; Resp 16; Pulse Ox 97% ; bp 17:10 BP 136 / 66; Pulse 71; Resp 17; Temp 98.5; Pulse Ox 100% ; bp 13:33 Body Mass Index 34.01 (81.65 kg, 154.94 cm) ca1 ED Course: 13:30 Patient arrived in ED. as 13:35 Triage completed. ca1 13:41 Arm band placed on right wrist. ca1 13:48 EKG done, by ED staff, reviewed by Dean Pete MD. ca1 14:01 Dean Pete MD is Attending Physician. kdr 14:12 Maurice Cedeño, ELIDIA is Primary Nurse. bp 14:13 Patient has correct armband on for positive identification. Bed in low position. Call bp light in reach. Side rails up X2. Pulse ox on. NIBP on. 14:24 Initial lab(s) drawn, by me, sent to lab. Inserted saline lock: 20 gauge in right em1 forearm, using aseptic technique. Blood collected. 14:39 XRAY Chest (1 view) In Process Unspecified. EDMS 17:18 No provider procedures requiring assistance completed. IV discontinued, intact, bp bleeding controlled, No redness/swelling at site. Pressure dressing applied. Patient maintains SpO2 saturation greater than 95% on room air. Administered Medications: No medications were administered Outcome: 17:03 Discharge ordered by . kdr 17:18 Discharged to home ambulatory. bp 17:18 Condition: stable 17:18 Discharge instructions given to patient, Instructed on discharge instructions, follow up and referral plans. Demonstrated understanding of instructions, follow-up care. 17:19 Patient left the ED. bp Signatures: Dispatcher [employer] EDMS Dean Pete MD MD kdr Martinez, Amelia as Martinez, Eric em1 Maurice Cedeño, RN RN bp Tala Ryan RN RN ca1
[2019-09-14 17:59] VITALS: BP 136/66; TEMP 98.5; O2SAT 100
--- NOTE | 2019-09-16 07:41 | EKG ---
Test Date: 2019-09-14 Test Time: 13:46:23 Program Instructor: ANGELA MEASUREMENT RESULTS: Intervals: Rate: 84 WI: 132 QRSD: 84 QT: 362 QTc: 427 Stanley: P: 60 WI: 132 QRS: 69 T: 24 INTERPRETIVE STATEMENTS: Normal sinus rhythm Normal ECG Compared to ECG 05/02/2018 13:48:33 Myocardial infarct finding no longer present Electronically Signed On 09-16-19 07:39:18 CDT by Jayesh Crocker
== END 2019-09-14 17:19 | disposition home or self-care (01) ==
LOC: ER 13:29
DX: R07.89 Other chest pain (principal); R00.2 Palpitations; I10 Essential (primary) hypertension; E07.9 Disorder of thyroid, unspecified
CPT/HCPCS: 36415; 71045; 80048; 83735; 83880; 84484; 85025; 93005; 99285

== ENCOUNTER → 2023-06-22 | Emergency (ER) | payer OTHER ==
--- NOTE | 2023-06-22 12:53 | RAD REPORT ---
EXAM DESCRIPTION: CT - Head Brain Wo Cont - 06/22/2023 12:46 pm CLINICAL HISTORY: HEADACHE Headache, drowsiness COMPARISON: No comparisons TECHNIQUE: All CT scans are performed using dose optimization technique as appropriate and may inclu de automated exposure control or mA/KV adjustment according to patient size. FINDINGS: No intracranial hemorrhage, hydrocephalus or extra-axial fluid collection.No areas of brai n edema or evidence of midline shift. The paranasal sinuses and mastoids are clear. The calvarium is intact. IMPRESSION: No acute intracranial abnormality.
--- NOTE | 2023-06-22 13:18 | EDPHYS ---
Physician Documentation [facility] Name: Makayla Rivera Age: 58 yrs Sex: Female : 1965 Arrival Date: 06/22/2023 Time: 12:15 Bed DX3 Private MD: ED Physician Luis Enrique Cota HPI: 06/22 13:13 This 58 yrs old Female presents to ER via Ambulatory with complaints of Headache. rn 13:13 The patient complains of pain to the top of head and forehead. The patient describes rn the headache as aching, throbbing. 13:14 Onset: The symptoms/episode began/occurred yesterday. Associated signs and symptoms: rn Pertinent negatives: altered mental status, fever, neck stiffness, rash, vision loss. Severity of symptoms: At its worst the pain was moderate, in the emergency department the pain has improved. The symptoms are alleviated by nothing. the symptoms are aggravated by nothing. The patient has experienced similar episodes in the past. Patient reports history of headaches and migraines. Began with headache to the top of it yesterday. 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 Does not recall hitting head. No LOC. No blood thinners. No focal neurological deficits. States headache preceded fall. Patient states headache similar to previous headaches. Historical: - Allergies: 12:35 No Known Allergies; ap3 - PMHx: 12:35 Hypertension; scoliosis; Thyroid problem; ap3 - Immunization history:: Client reports having NOT received the Covid vaccine. Flu vaccine is not up to date. - Social history:: Smoking status: Patient denies any tobacco usage or history of. Patient uses alcohol, occasionally. - Family history:: not pertinent. - Hospitalizations: : No recent hospitalization is reported. ROS: 13:14 Constitutional: Negative for fever, chills, and weight loss, Cardiovascular: Negative rn for chest pain, palpitations, and edema, Respiratory: Negative for shortness of breath, cough, wheezing, and pleuritic chest pain, Abdomen/GI: Negative for abdominal pain, nausea, vomiting, diarrhea, and constipation, Back: Negative for injury and pain, MS/Extremity: Negative for injury and deformity, Skin: Negative for injury, rash, and discoloration, Neuro: Positive for headache, negative for focal neurological complaint Exam: 13:14 Constitutional: This is a well developed, well nourished patient who is awake, alert, rn and in no acute distress. Head/Face: Normocephalic, atraumatic. Eyes: Pupils equal round and reactive to light, extra-ocular motions intact. Neck: No Meningismus. Neuro: Awake and alert, GCS 15, oriented to person, place, time, and situation. Cranial nerves II-XII grossly intact. Motor strength 5/5 in all extremities. Sensory grossly intact. Cerebellar exam normal. Normal gait. Vital Signs: 12:33 BP 134 / 74; Pulse 65; Resp 17; Temp 98.5; Pulse Ox 97% ; Weight 83.91 kg; Height 5 ft. ap3 1 in. ; Pain 10/10; 13:16 BP 140 / 71; Pulse 65; Resp 16 S; Pulse Ox 96% on R/A; as6 12:33 Body Mass Index 34.96 (83.91 kg, 154.94 cm) ap3 12:33 Pain Scale: Adult ap3 [place] Coma Score: 13:14 Eye Response: spontaneous(4). Motor Response: obeys commands(6). Verbal Response: rn oriented(5). Total: 15. MDM: 12:32 Patient medically screened. rn 13:14 Differential diagnosis: cluster headache, hypertensive headache, intracerebral rn hemorrhage, migraine, neoplasm, tension headache, vasomotor headache. Data reviewed: vital signs, nurses notes, radiologic studies, CT scan, and as a result, I will discharge patient. Counseling: I had a detailed discussion with the patient and/or guardian regarding the historical points, exam findings, and any diagnostic results supporting the discharge/admit diagnosis, radiology results, the need for outpatient follow up, to return to the emergency department if symptoms worsen or persist or if there are any questions or concerns that arise at home. Special discussion: I discussed with the patient/guardian in detail that at this point there is no indication for admission to the hospital. It is understood, however, that if the symptoms persist or worsen the patient needs to return immediately for re-evaluation. Based on the history and exam findings, there is no indication for further emergent testing or inpatient evaluation. I discussed with the patient/guardian the need to see the neurologist for further evaluation of the symptoms. 06/22 12:39 Order name: CT Head Brain wo Cont; Complete Time: 13:10 ap3 Administered Medications: No medications were administered Disposition Summary: 06/22/23 13:18 Discharge Ordered Notes: Location: Home rn Problem: an ongoing problem rn Symptoms: have improved rn Condition: Stable rn Diagnosis - Headache rn Followup: rn - With: Private Physician - When: As needed - Reason: Recheck today's complaints, Re-evaluation by your physician Discharge Instructions: - General Headache Without Cause rn - Migraine Headache rn - Discharge Summary Sheet ap3 Forms: - Medication Reconciliation Form rn - Thank You Letter rn - Antibiotic 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
--- NOTE | 2023-06-22 13:18 | ER ---
Nurse's Notes [facility] Name: Makayla Rivera Age: 58 yrs Sex: Female : 1965 Arrival Date: 06/22/2023 Time: 12:15 Bed DX3 Private MD: Diagnosis: Headache Presentation: 06/22 12:33 Chief complaint: Patient states: she started having a headache yesterday of which she ap3 rates the pain to be a 10/10 on the pain scale. patient also states she slipped at a house today when ambulating. patient denies nausea and vomiting, and denies vision changes. Coronavirus screen: At this time, the client does not indicate any symptoms associated with coronavirus-19. Ebola Screen: No symptoms or risks identified at this time. Initial Sepsis Screen: Does the patient meet any 2 criteria? No. Patient's initial sepsis screen is negative. Does the patient have a suspected source of infection? No. Patient's initial sepsis screen is negative. Risk Assessment: Do you want to hurt yourself or someone else? Patient reports no desire to harm self or others. Onset of symptoms was June 21, 2023. 12:33 Method Of Arrival: Ambulatory ap3 12:33 Acuity: FADUMO 3 ap3 Triage Assessment: 12:35 Headache History: The patient has had previous headaches and this one is similar to ap3 previous episodes. General: Appears in no apparent distress. Behavior is calm, cooperative, appropriate for age. Pain: Complains of pain in face Pain currently is 10 out of 10 on a pain scale. Pain began 1 day ago. Is lasting more than 1 hour. Also complains of no other associated symptoms. Neuro: Level of Consciousness is awake, alert, obeys commands, Oriented to person, place, time, situation, Appropriate for age Reports headache. Cardiovascular: Patient's skin is warm and dry. Respiratory: Airway is patent Respiratory effort is even, unlabored, Respiratory pattern is regular, symmetrical. Historical: - Allergies: 12:35 No Known Allergies; ap3 - PMHx: 12:35 Hypertension; scoliosis; Thyroid problem; ap3 - Immunization history:: Client reports having NOT received the Covid vaccine. Flu vaccine is not up to date. - Social history:: Smoking status: Patient denies any tobacco usage or history of. Patient uses alcohol, occasionally. - Family history:: not pertinent. - Hospitalizations: : No recent hospitalization is reported. Screenin:36 [facility] ED Fall Risk Assessment (Adult) History of falling in the last 3 months, ap3 including since admission Yes- single mechanical fall (1 pt) Confusion or Disorientation No (0 pts) Intoxicated or Sedated No (0 pts) Impaired Gait No (0 pts) Mobility Assist Device Used No (0 pt). Abuse screen: Denies threats or abuse. Nutritional screening: No deficits noted. Tuberculosis screening: No symptoms or risk factors identified. Assessment: 13:18 Reassessment: Patient appears in no apparent distress at this time. Patient and/or as6 family updated on plan of care and expected duration. Pain level reassessed. Patient is alert, oriented x 3, equal unlabored respirations, skin warm/dry/pink. Vital Signs: 12:33 BP 134 / 74; Pulse 65; Resp 17; Temp 98.5; Pulse Ox 97% ; Weight 83.91 kg; Height 5 ft. ap3 1 in. ; Pain 10/10; 13:16 BP 140 / 71; Pulse 65; Resp 16 S; Pulse Ox 96% on R/A; as6 12:33 Body Mass Index 34.96 (83.91 kg, 154.94 cm) ap3 12:33 Pain Scale: Adult ap3 [place] Coma Score: 13:14 Eye Response: spontaneous(4). Motor Response: obeys commands(6). Verbal Response: rn oriented(5). Total: 15. ED Course: 12:18 Patient arrived in ED. mg5 12:32 Luis Enrique Cota MD is Attending Physician. rn 12:35 Triage completed. ap3 12:36 Arm band placed on right wrist. ap3 12:47 CT Head Brain wo Cont In Process Unspecified. EDMS 13:16 Carlos Solomon, ELIDIA is Primary Nurse. as6 13:17 Bed in low position. Call light in reach. Provided Education on: follow up. as6 13:17 No provider procedures requiring assistance completed. Patient did not have IV access as6 during this emergency room visit. Administered Medications: No medications were administered Medication: 13:17 VIS not applicable for this client. as6 Outcome: 13:17 Discharged to home ambulatory, as6 13:17 Condition: stable 13:18 Discharge ordered by . rn 13:21 Discharge instructions given to patient, Instructed on discharge instructions, follow as6 up and referral plans. Demonstrated understanding of instructions, follow-up care, 13:21 Patient left the ED. as6 Signatures: Dispatcher [employer] Luis Enrique Castellano MD MD rn Prokisch, Amanda, RN RN tani3 Carlos Solomon RN RN as6 Mandi Ace 5
[2023-06-22 15:49] VITALS: BP 140/71; TEMP 98.5; O2SAT 96
== END ==
LOC: ER 12:15
DX: R51.9 Headache, unspecified (principal); Z28.310 Unvaccinated for COVID-19
CPT/HCPCS: 70450; 99282

== ENCOUNTER 2024-04-04 13:08 | Emergency (ER) | payer OTHER ==
[2024-04-04] MEDS ORDERED: DICYCLOMINE HCL 10 MG CAP ONE (13:57)
[2024-04-04 14:09] LABS: Absolute Basophils 0.1 K/uL (0-0.5); Absolute Eosinophils 0.2 K/uL (0-0.5); Absolute Lymphocytes (CBC) 2.4 K/uL (0.7-4.9); Absolute Monocytes 0.6 K/uL (0.1-1.3); Absolute Neutrophil 6.2 K/uL (1.8-8.0); Basophils % 0.9 % (0-1.3); Eosinophils % 1.6 % (0-4.4); Hematocrit 49.6 % (36.0-45.0); Lymphocytes % 25.4 % (15.3-44.8); MCHC 34.3 g/dL (32.0-36.0); MCV 90.4 fL (80-100); MPV 8.3 fL (7.6-11.3); Monocytes % 6.1 % (3.3-12.3); Nucleated Red Blood Cells % 0.2 % (0-0); Platelets 218 thou/uL (152-406); RBC Red Blood Cell Count 5.49 M/uL (3.86-4.86); Red Cell Distribution Width 12.6 % (12.1-15.2)
[2024-04-04 14:16] LABS: Specific Gravity > 1.030 (1.005-1.030); Sqamous Epithelial <5 /HPF (None Seen); Urine Bacteria None Seen /HPF (<20); Urine Bilirubin NEGATIVE (Negative); Urine Blood Negative (Negative); Urine Clarity Clear (Clear); Urine Color Colorless (Yellow); Urine Culture Reflex Order NOT NEEDED; Urine Glucose 4+ (Over) (Negative); Urine Ketones NEGATIVE (Negative); Urine Microscopic Reflex YN ORDER UMIC; Urine Mucus Slight /HPF (None Seen); Urine Nitrite NEGATIVE (Negative); Urine Protein NEGATIVE (Negative); Urine RBC <5 /HPF (None Seen); Urine Urobilinogen Normal (Normal); Urine WBC <5 /HPF (<5); Urine pH 5.5 (5.0-7.0)
[2024-04-04] MEDS ORDERED: NA CHLORIDE 0.9% 1,000 ML ONE (14:26)
[2024-04-04 14:36] LABS: Albumin 4.2 g/dL (3.4-5.0); Albumin/Globulin Ratio 1.1 (1.1-1.8); Anion Gap 10.9 mEq/L (5.0-15.0); Bilirubin Total 0.5 mg/dL (0.2-1.0); Protein, Total 8.2 g/dL (6.4-8.2)
[2024-04-04 14:38] LABS: Potassium 3.9 mEq/L (3.5-5.1)
--- NOTE | 2024-04-04 15:22 | RAD REPORT ---
EXAMINATION: US Abdomen Exam Limited CLINICAL HISTORY: [facility] MAIN Y ABD PAIN Bed Name: 14 COMPARISON: None. TECHNIQUE: Limited upper abdominal grayscale and color flow sonographic images. FINDINGS: Gallbladder: No thickening or pericholecystic. Reportedly positive sonographic Merritt's sign. No gall stones.. Bile ducts: No intrahepatic or extrahepatic biliary dilatation. Common bile duct measures 5 mm. Liver: Visualized portions of the liver demonstrate normal echogenicity with no suspicious findings. Fluid: No ascites. IMPRESSION: Reportedly positive sonographic Merritt's sign with no evidence of cholelithiasis or other sonographic findings of acute cholecystitis at this time.
--- NOTE | 2024-04-04 16:47 | RAD REPORT ---
EXAMINATION: CT Abdomen Pelvis W Contrast CLINICAL INDICATION: Female, 58 years old. ABD PAIN TECHNIQUE: CT abdomen and pelvis was performed, after the administration of IV contrast, as per [facility] protocol. Axial, sagittal and coronal reconstructions were obtained. One or more of the following dose reduction techniques were used: Automated exposure control, adjustment of the mA and k V according to patient size, and iterative reconstruction. Unless otherwise specified, incidental findings do not require dedicated imaging follow-up. COMPARISON: No prior exam. FINDINGS: LOWER CHEST: The visualized lung bases are clear. LIVER: Significant fatty liver with subjective hepatomegaly present. No focal lesion or biliary dilit ation. BILIARY SYSTEM: No suspicious abnormalities. SPLEEN: Normal size. No focal lesion. PANCREAS: No mass, ductal dilation, or gela-pancreatic fluid. ADRENALS: Normal; no mass. KIDNEYS: Normal size and contour. No hydronephrosis. URINARY BLADDER: Unremarkable. GASTROINTESTINAL TRACT: No evidence of free air, significant intra-abdominal free fluid, bowel obstru ction or abscess. APPENDIX: Normal appendix. LYMPH NODES: No lymphadenopathy. MUSCULOSKELETAL: No acute or suspicious osseous abnormality. ADDITIONAL FINDINGS: Lobulated umbilical hernia containing fat. IMPRESSION: No acute or concerning abnormalities seen in the abdomen or pelvis. Steatosis with some hepatomegaly. Lobulated umbilical hernia containing fat.
--- NOTE | 2024-04-04 17:29 | ER ---
Nurse's Notes [facility] Name: Makayla Rivera Age: 58 yrs Sex: Female : 1965 Arrival Date: 04/04/2024 Time: 13:08 Bed 14 Private MD: Diagnosis: Upper abdominal pain, unspecified;Hyperglycemia, unspecified Presentation: 04/04 13:20 Chief complaint: Patient states: UPPER ABDOMINAL PAIN ONSET 2 WEEKS AGO. PT STATES THAT cm10 THE PAIN RADIATES TO HER RIGHT UPPER QUADRANT. PT STATES THAT NOTHING MAKES THE PAIN BETTER OR WORSE. Coronavirus screen: Client denies travel out of the [place] in the last 14 days. Ebola Screen: Patient denies travel to an Ebola-affected area in the 21 days before illness onset. No symptoms or risks identified at this time. Initial Sepsis Screen: Does the patient meet any 2 criteria? No. Patient's initial sepsis screen is negative. Does the patient have a suspected source of infection? No. Patient's initial sepsis screen is negative. Risk Assessment: Do you want to hurt yourself or someone else? Patient reports no desire to harm self or others. Onset of symptoms is unknown. 13:20 Method Of Arrival: Ambulatory cm10 13:20 Acuity: FADUMO 3 cm10 Triage Assessment: 13:22 General: Appears in no apparent distress. uncomfortable, Behavior is calm, cooperative. cm10 Neuro: No deficits noted. Level of Consciousness is awake, alert, obeys commands, Oriented to person, place, time, situation, Appropriate for age. Respiratory: No deficits noted. Airway is patent Respiratory effort is even, unlabored, Respiratory pattern is regular, symmetrical. Historical: - Allergies: 13:22 No Known Allergies; cm10 - PMHx: 13:22 Hypertension; scoliosis; Thyroid problem; cm10 - Immunization history:: Adult Immunizations up to date. - Infectious Disease History:: Denies. - Social history:: Smoking status: Patient denies any tobacco usage or history of. Screenin:50 [facility] ED Fall Risk Assessment (Adult) History of falling in the last 3 months, mb9 including since admission No falls in past 3 months (0 pts) Confusion or Disorientation No (0 pts) Intoxicated or Sedated No (0 pts) Impaired Gait No (0 pts) Mobility Assist Device Used No (0 pt) Altered Elimination No (0 pt) Score/Fall Risk Level 0 - 2 = Low Risk Oriented to surroundings, Maintained a safe environment, Educated pt \T\ family on fall prevention, incl call for assistance when getting out of bed. Abuse screen: Denies threats or abuse. Nutritional screening: No deficits noted. Tuberculosis screening: No symptoms or risk factors identified. Assessment: 13:49 General: Appears in no apparent distress. Behavior is calm, cooperative. Pain: mb9 Complains of pain in abdomen Pain does not radiate. Pain currently is 10 out of 10 on a pain scale. Quality of pain is described as sharp, shooting, Pain began gradually, Is intermittent. Neuro: [place] Agitation-Sedation Scale (RASS): 0 - Alert and Calm Level of Consciousness is awake, alert, obeys commands, Oriented to person, place, time, situation, Appropriate for age. Cardiovascular: Heart tones S1 S2 present Patient's skin is warm and dry. Respiratory: Airway is patent Respiratory effort is even, unlabored, Respiratory pattern is regular, symmetrical. GI: Abdomen is round non-distended, Bowel sounds present X 4 quads. Abd is soft Abdomen is tender to palpation in epigastric area. : No signs and/or symptoms were reported regarding the genitourinary system. EENT: No signs and/or symptoms were reported regarding the EENT system. Derm: Skin is pink, warm \T\ dry. 15:00 Reassessment: No changes from previously documented assessment. Patient and/or family mb9 updated on plan of care and expected duration. Pain level reassessed. Patient is alert, oriented x 3, equal unlabored respirations, skin warm/dry/pink. 16:58 Reassessment: No changes from previously documented assessment. Patient and/or family mb9 updated on plan of care and expected duration. Pain level reassessed. Patient is alert, oriented x 3, equal unlabored respirations, skin warm/dry/pink. Vital Signs: 13:20 BP 148 / 80; Pulse 72; Resp 18; Temp 96.8(TE); Pulse Ox 97% on R/A; Weight 83.91 kg; cm10 Height 5 ft. 1 in. ; Pain 10/10; 14:52 BP 119 / 66; Pulse 70; Resp 16; Pulse Ox 98% on R/A; mb9 17:43 BP 115 / 68; Pulse 74; Resp 18; Pulse Ox 100% on R/A; mb9 13:20 Body Mass Index 34.96 (83.91 kg, 154.94 cm) cm10 13:20 Pain Scale: Adult cm10 ED Course: 13:10 Patient arrived in ED. im 13:14 Zina Salmeron FNP-C [facility]. kb 13:14 Collette Muir MD is Attending Physician. kb 13:22 Triage completed. cm10 13:22 Arm band placed on right wrist. Patient placed in waiting room. cm10 13:44 Patrica Eden, RN is Primary Nurse. mb9 13:49 CBC with Diff Sent. mb9 13:49 CMP Sent. mb9 13:49 Lipase Sent. mb9 13:49 Urinalysis w/ reflexes Sent. mb9 13:50 Placed in gown. Bed in low position. Call light in reach. Side rails up X 1. Provided mb9 Education on: press call light if needing anything. Client placed on continuous cardiac and pulse oximetry monitoring. NIBP monitoring applied. 13:50 No provider procedures requiring assistance completed. mb9 14:03 Initial lab(s) drawn, by me, sent to lab. Inserted saline lock: 20 gauge in right mb9 antecubital area, using aseptic technique. Blood collected. Flushed with 10 mL NS. 14:06 US Abdomen Limited In Process Unspecified. EDMS 16:06 CT Abd/Pelvis - IV Contrast Only In Process Unspecified. EDMS 17:43 IV discontinued, intact, bleeding controlled, No redness/swelling at site. Pressure mb9 dressing applied. Administered Medications: 13:58 Drug: Dicyclomine PO 20 mg PO once Route: PO; mb9 14:29 Follow up: Response: No adverse reaction mb9 14:32 Drug: NS 0.9% IV 1000 ml IV at 1 bolus Per protocol; to be given as a bolus over 60 mb9 minutes Route: IV; Rate: 1 bolus; Site: right antecubital; 16:06 Follow up: Response: No adverse reaction; IV Status: Completed infusion mb9 Medication: 13:50 VIS not applicable for this client. mb9 Outcome: 17:29 Discharge ordered by . kb 17:43 Discharged to home ambulatory, with family, mb9 17:43 Condition: stable 17:43 Discharge instructions given to patient, Instructed on discharge instructions, follow up and referral plans. Demonstrated understanding of instructions, follow-up care, medications, Prescriptions given X 2, 17:44 Patient left the ED. mb9 Signatures: Dispatcher [employer] Zina Roe FNP-C FNP-Ckb Wilkerson, Mary Beth RN RN mb9 Karla Barnett Clarissa RN RN cm10
--- NOTE | 2024-04-04 17:29 | EDPHYS ---
Physician Documentation [facility] Name: Makayla Rivera Age: 58 yrs Sex: Female : 1965 Arrival Date: 04/04/2024 Time: 13:08 Bed 14 Private MD: ED Physician Collette Muir HPI: 04/04 14:35 This 58 yrs old Female presents to ER via Ambulatory with complaints of Abdominal Pain. kb 14:39 Pt is a 58 year old female who presents for upper abd pain that has been intermittent kb for 2 weeks. States the pain is random, no particular aggravating or alleviating factors. Denies n/v/d, fever. . Historical: - Allergies: 13:22 No Known Allergies; cm10 - PMHx: 13:22 Hypertension; scoliosis; Thyroid problem; cm10 - Immunization history:: Adult Immunizations up to date. - Infectious Disease History:: Denies. - Social history:: Smoking status: Patient denies any tobacco usage or history of. ROS: 14:30 Constitutional: As per HPI kb Exam: 14:30 Constitutional: This is a well developed, well nourished patient who is awake, alert, kb and in no acute distress. Head/Face: Normocephalic, atraumatic. ENT: Moist Mucous membranes Cardiovascular: Regular rate Respiratory: Respirations even and unlabored. No increased work of breathing. Talking in full sentences Skin: Warm, dry with normal turgor. Normal color. MS/ Extremity: Pulses equal, no cyanosis. Neurovascular intact. Full, normal range of motion. Neuro: Awake and alert, GCS 15, oriented to person, place, time, and situation. 14:30 Abdomen/GI: Inspection: abdomen appears normal, Bowel sounds: normal, Palpation: soft, in all quadrants, mild abdominal tenderness, in the epigastric area, right upper quadrant and left upper quadrant, Vital Signs: 13:20 BP 148 / 80; Pulse 72; Resp 18; Temp 96.8(TE); Pulse Ox 97% on R/A; Weight 83.91 kg; cm10 Height 5 ft. 1 in. ; Pain 10/10; 14:52 BP 119 / 66; Pulse 70; Resp 16; Pulse Ox 98% on R/A; mb9 17:43 BP 115 / 68; Pulse 74; Resp 18; Pulse Ox 100% on R/A; mb9 13:20 Body Mass Index 34.96 (83.91 kg, 154.94 cm) cm10 13:20 Pain Scale: Adult cm10 MDM: 13:14 Medical Screening Exam initiated kb 17:28 Differential diagnosis: bowel obstruction, cholecystitis, Cholelithiasis, kb diverticulitis, non-specific abd pain, pancreatitis. Data reviewed: vital signs, nurses notes. Counseling: I had a detailed discussion with the patient and/or guardian regarding the historical points, exam findings, and any diagnostic results supporting the discharge/admit diagnosis, lab results, radiology results, the need for outpatient follow up, a family practitioner, to return to the emergency department if symptoms worsen or persist or if there are any questions or concerns that arise at home. 04/04 13:34 Order name: CBC with Diff; Complete Time: 14:28 kb 04/04 13:34 Order name: CMP; Complete Time: 14:40 kb 04/04 13:34 Order name: Lipase; Complete Time: 14:40 kb 04/04 13:34 Order name: Urinalysis w/ reflexes; Complete Time: 14:21 kb 04/04 13:51 Order name: US Abdomen Limited; Complete Time: 15:24 kb 04/04 15:25 Order name: CT Abd/Pelvis - IV Contrast Only; Complete Time: 16:47 kb 04/04 13:34 Order name: IV Saline Lock; Complete Time: 13:49 kb 04/04 13:34 Order name: Labs collected and sent; Complete Time: 13:49 kb Administered Medications: 13:58 Drug: Dicyclomine PO 20 mg PO once Route: PO; mb9 14:29 Follow up: Response: No adverse reaction mb9 14:32 Drug: NS 0.9% IV 1000 ml IV at 1 bolus Per protocol; to be given as a bolus over 60 mb9 minutes Route: IV; Rate: 1 bolus; Site: right antecubital; 16:06 Follow up: Response: No adverse reaction; IV Status: Completed infusion mb9 Disposition Summary: 04/04/24 17:29 Discharge Ordered Notes: Location: Home kb Condition: Stable kb Diagnosis - Upper abdominal pain, unspecified kb - Hyperglycemia, unspecified kb Followup: kb - With: Emergency Department - When: As needed - Reason: Worsening of condition Followup: kb - With: Private Physician - When: 2 - 3 days - Reason: Recheck today's complaints, Continuance of care, Re-evaluation by your physician Discharge Instructions: - Discharge Summary Sheet kb - Abdominal Pain, Adult, [id number] kb - Type 2 Diabetes Mellitus, Diagnosis, Adult, [id number] kb Forms: - Medication Reconciliation Form kb - Antibiotic Education kb - Prescription Opioid Use kb - Patient Portal Instructions kb - Leadership Thank You Letter kb Prescriptions: - Metformin 500 mg Oral Tablet - take 1 tablet ORAL route once daily for 7 days Then take 1 tablet with morning kb meals AND evening meals; 21 tablet; Refills: 0, Product Selection Permitted - dicyclomine 20 mg Oral tablet - take 1 tablet ORAL route 4 times per day As needed; 20 tablet; Refills: 0, kb Product Selection Permitted Signatures: Dispatcher [employer] Zina Roe, LEVEE SUPERINTENDENT-C STEVEN-Patrica Arnold, RN RN mb9 Simran Das RN RN cm10
[2024-04-04 17:52] VITALS: TEMP 96.8
[2024-04-04 18:08] VITALS: BP 115/68; O2SAT 100
== END 2024-04-04 17:44 | disposition home or self-care (01) ==
LOC: ER 13:08
DX: R10.13 Epigastric pain (principal); R73.9 Hyperglycemia, unspecified; I10 Essential (primary) hypertension
CPT/HCPCS: 85025; 81001; 36415; 82947; 83690; 80053; 74177; 76705; Q9967; J7030

== ENCOUNTER 2024-10-05 14:42 | Emergency (ER) | payer OTHER ==
[2024-10-05 17:04] LABS: Absolute Basophils 0.1 K/uL (0-0.5); Absolute Eosinophils 0.1 K/uL (0-0.5); Absolute Lymphocytes (CBC) 2.8 K/uL (0.7-4.9); Absolute Monocytes 0.6 K/uL (0.1-1.3); Absolute Neutrophil 6.2 K/uL (1.8-8.0); Basophils % 0.8 % (0-1.3); Eosinophils % 1.3 % (0-4.4); Hematocrit 46.5 % (36.0-45.0); Hemoglobin 16.4 g/dL (12.0-15.0); Lymphocytes % 28.9 % (15.3-44.8); MCH 31.4 pg (27.0-35.0); MCHC 35.3 g/dL (32.0-36.0); MCV 88.8 fL (80-100); MPV 7.8 fL (7.6-11.3); Monocytes % 6.1 % (3.3-12.3); Neutrophils % 62.9 % (41.7-73.7); Nucleated RBC Absolute Count 0.1 (0-0); Nucleated Red Blood Cells % 0.6 % (0-0); Platelets 237 thou/uL (152-406); RBC Red Blood Cell Count 5.24 M/uL (3.86-4.86)
[2024-10-05 17:20] LABS: Anion Gap 11.5 mEq/L (5.0-15.0); Bilirubin Total 0.4 mg/dL (0.2-1.0); Globulin 4.1 g/dL (2.3-3.5); Potassium 3.5 mEq/L (3.5-5.1); Protein, Total 8.1 g/dL (6.4-8.2)
--- NOTE | 2024-10-05 19:31 | ER ---
Nurse's Notes [facility] Name: Makayla Rivera Age: 59 yrs Sex: Female : 1965 Arrival Date: 10/05/2024 Time: 14:42 Bed Treatment Private MD: Diagnosis: Rectosigmoid colitis;Fatty liver with hepatomegaly Presentation: 10/05 15:00 Chief complaint: Patient states: abd pain started Tuesday night, diarrhea and nausea, no iw fever , no vomiting , has issues with her gallbladder and this feels similar. Coronavirus screen: At this time, the client does not indicate any symptoms associated with coronavirus-19. Ebola Screen: No symptoms or risks identified at this time. Initial Sepsis Screen: Does the patient meet any 2 criteria? No. Patient's initial sepsis screen is negative. Does the patient have a suspected source of infection? No. Patient's initial sepsis screen is negative. Risk Assessment: Do you want to hurt yourself or someone else? Patient reports no desire to harm self or others. Onset of symptoms was September 28, 2024. 15:00 Method Of Arrival: Ambulatory iw 15:00 Acuity: FADUMO 3 iw Historical: - Allergies: 15:01 No Known Allergies; iw - PMHx: 15:01 Hypertension; scoliosis; Thyroid problem; iw - Immunization history:: Adult Immunizations unknown. - Infectious Disease History:: Denies. - Social history:: Smoking status: unknown. Screenin:45 [facility] ED Fall Risk Assessment (Adult) History of falling in the last 3 months, kj2 including since admission No falls in past 3 months (0 pts) Confusion or Disorientation No (0 pts) Intoxicated or Sedated No (0 pts) Impaired Gait No (0 pts) Mobility Assist Device Used No (0 pt) Altered Elimination No (0 pt) Score/Fall Risk Level 0 - 2 = Low Risk Maintained a safe environment, Hourly rounding (assess needs \T\ fall precautionary measures) done. Abuse screen: Denies threats or abuse. Denies injuries from another. Nutritional screening: No deficits noted. Tuberculosis screening: No symptoms or risk factors identified. Assessment: 16:30 General: Appears in no apparent distress. Behavior is calm, cooperative. Pain: kj2 Complains of pain in right upper quadrant Pain currently is 4 out of 10 on a pain scale. Neuro: Level of Consciousness is awake, alert, obeys commands, Oriented to person, place, time, situation. Cardiovascular: Patient's skin is warm and dry. GI: Bowel sounds present X 4 quads. Abd is non tender. : No signs and/or symptoms were reported regarding the genitourinary system. 17:30 Reassessment: Patient appears in no apparent distress at this time. Patient and/or kj2 family updated on plan of care and expected duration. Pain level reassessed. Patient is alert, oriented x 3, equal unlabored respirations, skin warm/dry/pink. 19:03 Reassessment: Patient appears in no apparent distress at this time. Patient and/or kj2 family updated on plan of care and expected duration. Pain level reassessed. Patient is alert, oriented x 3, equal unlabored respirations, skin warm/dry/pink. 19:53 Reassessment: Patient appears in no apparent distress at this time. Patient and/or kj2 family updated on plan of care and expected duration. Pain level reassessed. Patient is alert, oriented x 3, equal unlabored respirations, skin warm/dry/pink. Vital Signs: 15:00 BP 135 / 76; Pulse 87; Resp 16; Temp 97.7; Pulse Ox 97% on R/A; Weight 82.1 kg; Height iw 5 ft. 1 in. ; Pain 10/10; 17:45 BP 132 / 74; Pulse 82; Resp 20; Pulse Ox 100% on R/A; kj2 19:02 BP 147 / 88; Pulse 82; Resp 20; Pulse Ox 100% ; kj2 19:53 BP 142 / 84; Pulse 80; Resp 20; Temp 98; Pulse Ox 100% on R/A; kj2 15:00 Body Mass Index 34.20 (82.10 kg, 154.94 cm) iw 15:00 Pain Scale: Adult iw ED Course: 14:44 Patient arrived in ED. im 14:46 Helen Jaramillo PA-C is PHCP. sb4 14:46 Luis Enrique Cota MD is Attending Physician. sb4 15:01 Triage completed. iw 15:02 Arm band placed on. iw 16:24 Alessia Burrell, ELIDIA is Primary Nurse. kj2 16:37 US Abdomen Limited In Process Unspecified. EDMS 16:45 Patient has correct armband on for positive identification. Bed in low position. Call kj2 light in reach. Provided Education on: call light. 16:45 Inserted saline lock: 20 gauge in left forearm, using aseptic technique. Blood kj2 collected. Flushed with 10 mL NS. 16:45 No provider procedures requiring assistance completed. kj2 18:52 CT Abd/Pelvis - IV Contrast Only In Process Unspecified. EDMS 19:29 Eliel Galvin MD is Referral Physician. sb4 19:53 IV discontinued, intact, bleeding controlled, No redness/swelling at site. Pressure kj2 dressing applied. Administered Medications: No medications were administered Medication: 16:45 VIS not applicable for this client. kj2 Outcome: 19:30 Discharge ordered by . sb4 19:52 Discharged to home ambulatory, kj2 19:52 Condition: stable 19:52 Discharge instructions given to patient, family, Instructed on discharge instructions, follow up and referral plans. 20:01 Patient left the ED. kj2 Signatures: Dispatcher [employer] EDUrmila Tomlin, RN RN iw Helen Jaramillo, PA-C PA-C sb4 Karla Barnett Krystal, RN RN kj2 Corrections: (The following items were deleted from the chart) 15:02 15:00 BP 135 / 76; Pulse 87bpm; Resp 16bpm; Pulse Ox 97% RA; Temp 97.7F; iw iw 15:02 15:00 BP 135 / 76; Pulse 87bpm; Resp 16bpm; Pulse Ox 97% RA; Temp 97.7F; 82.1 kg; Pain iw 10/10, Adult; iw
--- NOTE | 2024-10-05 19:31 | EDPHYS ---
Physician Documentation [facility] Name: Makayla Rivera Age: 59 yrs Sex: Female : 1965 Arrival Date: 10/05/2024 Time: 14:42 Bed Treatment Private MD: ED Physician Luis Enrique Cota HPI: 10/05 16:01 This 59 yrs old Female presents to ER via Ambulatory with complaints of Abdominal Pain. sb4 16:01 The patient presents with abdominal pain in the right upper quadrant. Onset: The sb4 symptoms/episode began/occurred 1 week(s) ago. The symptoms do not radiate. Associated signs and symptoms: Pertinent positives: diarrhea, nausea. The patient has experienced a previous episode, approximately 1 years ago, but today's symptoms are worse. The patient has been recently seen by a physician: the patient's primary care provider, with similar presenting complaints, and was referred to a specialist. Historical: - Allergies: 15:01 No Known Allergies; iw - PMHx: 15:01 Hypertension; scoliosis; Thyroid problem; iw - Immunization history:: Adult Immunizations unknown. - Infectious Disease History:: Denies. - Social history:: Smoking status: unknown. ROS: 16:01 Constitutional: Negative for fever, chills, and weight loss, sb4 16:01 Abdomen/GI: Positive for abdominal pain, nausea, diarrhea, 16:01 All other systems are negative, Exam: 16:02 Constitutional: This is a well developed, well nourished patient who is awake, alert, sb4 and in no acute distress. Head/Face: Normocephalic, atraumatic. Eyes: Extra-ocular motions intact. Periorbital areas with no swelling, redness, or edema. ENT: Mucous membranes moist. Cardiovascular: Regular rate and rhythm with a normal S1 and S2. Respiratory: No increased work of breathing, no retractions or nasal flaring. Skin: Warm, dry with normal turgor. Normal color with no rashes, no lesions, and no evidence of cellulitis. 16:02 Abdomen/GI: Inspection: abdomen appears normal, Bowel sounds: normal, Palpation: soft, moderate abdominal tenderness, in the right upper quadrant, Indicators: Merritt's sign is positive, Vital Signs: 15:00 BP 135 / 76; Pulse 87; Resp 16; Temp 97.7; Pulse Ox 97% on R/A; Weight 82.1 kg; Height iw 5 ft. 1 in. ; Pain 10/10; 17:45 BP 132 / 74; Pulse 82; Resp 20; Pulse Ox 100% on R/A; kj2 19:02 BP 147 / 88; Pulse 82; Resp 20; Pulse Ox 100% ; kj2 19:53 BP 142 / 84; Pulse 80; Resp 20; Temp 98; Pulse Ox 100% on R/A; kj2 15:00 Body Mass Index 34.20 (82.10 kg, 154.94 cm) iw 15:00 Pain Scale: Adult iw MDM: 15:05 Medical Screening Exam initiated sb4 16:07 Differential diagnosis: cholecystitis, Cholelithiasis, gastritis, gastroesophageal sb4 reflux disease, Hepatitis, non-specific abd pain, pancreatitis, Peptic Ulcer Disease. 19:29 Data reviewed: vital signs, nurses notes, lab test result(s), radiologic studies, CT sb4 scan, ultrasound, and as a result, I will discharge patient. Care significantly affected by the following chronic conditions: Hypertension, Obesity. Counseling: I had a detailed discussion with the patient and/or guardian regarding the historical points, exam findings, and any diagnostic results supporting the discharge/admit diagnosis, the presence of at least one elevated blood pressure reading (>120/80) during this emergency department visit, lab results, radiology results, the need for outpatient follow up, a e/m engineer, to return to the emergency department if symptoms worsen or persist or if there are any questions or concerns that arise at home. 10/05 15:10 Order name: CBC with Diff; Complete Time: 17:06 sb4 10/05 15:10 Order name: CMP; Complete Time: 17:21 sb4 10/05 15:10 Order name: Lipase; Complete Time: 17:21 sb4 10/05 15:59 Order name: US Abdomen Limited sb4 10/05 18:14 Order name: CT Abd/Pelvis - IV Contrast Only sb4 10/05 15:10 Order name: IV Saline Lock; Complete Time: 16:54 sb4 10/05 15:10 Order name: Labs collected and sent; Complete Time: 16:54 sb4 Administered Medications: No medications were administered Disposition: 10/06 07:03 Co-signature as Attending Physician, Luis Enrique Cota MD I reviewed the patient's care rn provided by the Advanced Practice Provider and agree with the diagnosis and treatment plan. Disposition Summary: 10/05/24 19:30 Discharge Ordered Notes: Location: Home sb4 Problem: new sb4 Symptoms: have improved sb4 Condition: Stable sb4 Diagnosis - Rectosigmoid colitis sb4 - Fatty liver with hepatomegaly sb4 Followup: sb4 - With: Eliel Galvin MD - When: As needed - Reason: Further diagnostic work-up, Recheck today's complaints, Re-evaluation by your physician Discharge Instructions: - Discharge Summary Sheet sb4 - Fatty Liver Disease sb4 - Colitis sb4 Forms: - Antibiotic Education sb4 - Patient Portal Instructions sb4 - Leadership Thank You Letter sb4 Prescriptions: - Flagyl 500 mg Oral Tablet - take 1 tablet ORAL route every 12 hours for 7 days; 14 tablet; Refills: 0, sb4 Product Selection Permitted - Cipro 500 mg Oral Tablet - take 1 tablet ORAL route every 12 hours for 7 days; 14 tablet; Refills: 0, sb4 Product Selection Permitted Signatures: Dispatcher [employer] Urmila Ledbetter, RN Luis Enrique Stovall MD MD rn Brown, Sophia, PA-C PA-C sb4 Alessia Burrell, RN RN kj2
[2024-10-05 20:09] VITALS: O2SAT 100
[2024-10-05 20:11] VITALS: BP 142/84; TEMP 98
--- NOTE | 2024-10-05 21:15 | RAD REPORT ---
EXAM: Right upper quadrant ultrasound. CLINICAL HISTORY: ABD PAIN COMPARISON: None. FINDINGS: Gallbladder: Normal. Bile ducts: No intrahepatic or extrahepatic biliary dilatation. Common bile duct measures 4 mm. Limited imaging of the liver shows heterogenous echotexture. IMPRESSION: Negative gallbladder/biliary tree findings. Electronically signed by: Osman Gauthier MD 10/05/2024 05:19 PM CDT RP Transcribed Date/Time: 10/05/2024 9:15 PM
--- NOTE | 2024-10-05 22:05 | RAD REPORT ---
EXAMINATION: CT ABDOMEN AND PELVIS WITH CONTRAST CLINICAL INDICATION: ABD PAIN TECHNIQUE: CT abdomen and pelvis was performed, after the administration of IV contrast, as per [facility] protocol. Axial, sagittal and coronal reconstructions were obtained. One or more of the following dose reduction techniques were used: Automated exposure control, adjustment of the mA and k V according to patient size, and iterative reconstruction. Unless otherwise specified, incidental findings do not require dedicated imaging follow-up. COMPARISON: 04/04/2024 FINDINGS: LOWER CHEST: The visualized lung bases are clear. LIVER: Significant fatty liver with hepatomegaly present. No focal lesion or biliary dilitation. Gr ossly unremarkable gallbladder. SPLEEN: Normal size. No focal lesion. PANCREAS: No mass, ductal dilation, or gela-pancreatic fluid. ADRENALS: Normal; no mass. KIDNEYS: Normal size and contour. No hydronephrosis. GASTROINTESTINAL TRACT: No evidence of free air, significant intra-abdominal free fluid, bowel obstru ction or abscess. There is moderate thickening of the rectosigmoid colon with mucosal enhancement likely colitis. APPENDIX: Normal appendix. LYMPH NODES: No lymphadenopathy. MUSCULOSKELETAL: Mild degenerative levoscoliosis lumbar spine. ADDITIONAL FINDINGS: Moderate fat-containing bilateral hernia. IMPRESSION: Mild to moderate rectosigmoid colitis pattern is seen. Significant fatty liver with hepatomegaly. Electronically signed by: Osman Gauthier MD 10/05/2024 07:16 PM T Due to temporary technical issues with the PACS/[employer] reporting system, reports are being deni d by the in-house radiologist without review as a courtesy to ensure prompt reporting the interpreting radiologist is fully responsible for the content of the report. Transcribed Date/Time: 10/05/2024 10:04 PM
== END 2024-10-05 20:01 | disposition home or self-care (01) ==
LOC: ER 14:42
DX: K52.89 Other specified noninfective gastroenteritis and colitis (principal); K76.0 Fatty (change of) liver, not elsewhere classified; I10 Essential (primary) hypertension
CPT/HCPCS: 85025; 36415; 83690; 80053; 74177; 76705; 99284; Q9967